=== PATIENT | male | born 1935 | race Caucasian/White ===

== ENCOUNTER 2019-04-22 10:25 | Observation (INO) | payer MEDICARE, BC ==
--- NOTE | 2019-04-22 10:58 | RAD ---
EXAM: Portable chest PROVIDED CLINICAL HISTORY: Chest pain COMPARISON: 12/26/2015 FINDINGS: Cardiac and mediastinal silhouette is unchanged in appearance. Median sternotomy changes are again se en. No focal consolidation, pleural fluid or pneumothorax evident. IMPRESSION: No evidence for an acute cardiopulmonary process.
[2019-04-22 11:04] LABS: #Lymphocytes 1.8 thou/uL (1.20-3.40); #Monocytes 0.7 thou/uL (0.11-0.59); #Neutrophils 5.7 thou/uL (1.40-6.50); %Basophils 0.3 % (0.0-1.0); %Eosinophils 0.2 % (0.0-10.0); %Lymphocytes 22.4 % (21.0-51.0); %Monocytes 8.1 % (0.0-10.0); %Neutrophils 69.1 % (42.0-75.0); Hemoglobin 14.5 g/dL (14.0-18.0); Mean Corpuscular Hemoglobin 33.5 pg (27.0-31.0); Mean Platelet Volume 10.1 fL (7.4-10.4); Platelet Count 162 thou/uL (130-400); RBC Distribution Width 13.2 % (11.5-14.5); Red Blood Cell (RBC) Count 4.31 mill/uL (4.70-6.10); White Blood Cell (WBC) Count 8.2 thou/uL (4.8-10.8)
[2019-04-22 11:14] LABS: ALT (SGPT) 13 U/L (8-55); AST (SGOT) 20 U/L (5-34); Albumin 4.4 g/dL (3.4-4.8); Alkaline Phosphatase 71 U/L (40-110); Anion Gap 11 mmol/L (10-20); BUN (Urea Nitrogen) 17 mg/dL (8.4-25.7); Bilirubin, Total 1.1 mg/dL (0.2-1.2); CK (CPK) 103 U/L (30-200); Calc. Creatinine Clearance 0 mL/min (70-130); Calcium 9.4 mg/dL (7.8-10.44); Carbon Dioxide 30 mmol/L (23-31); Chloride 99 mmol/L (98-107); Estimated GFR-MDRD 70; Globulin 2.8 g/dL (2.4-3.5); Glucose 104 mg/dL (83-110); Potassium 4.7 mmol/L (3.5-5.1); Protein, Total 7.2 g/dL (5.8-8.1); Sodium 135 mmol/L (136-145)
[2019-04-22 11:35] LABS: CKMB 2.9 ng/mL (0-6.6)
[2019-04-22] MEDS ORDERED: Aspirin Chewable 81 MG TAB ONE (12:38)
[2019-04-22] MEDS ORDERED: Acetaminophen 325 MG TAB PO PRN (13:45)
--- NOTE | 2019-04-22 14:18 | HP ---
CHIEF COMPLAINT: Weak. HISTORY OF PRESENT ILLNESS: This is an 83-year-old male with history of coronary artery disease and bypass in 2004, dyslipidemia, and osteoarthritis, who presents to the emergency room today complaining of weakness, lethargy, dizziness, and palpitations. The patient reports that these symptoms have been going on for months, however, were worse today. He describes dizzy as the room spinning, weak as the inability to do anything that he finds meaningful, and palpitations of his both chest pain and tingling that is brief and intermittent, as well as his heart that is beating abnormally. In addition, he complains of productive cough, chest congestion, runny nose that is also chronic, but feels worse today. His took his blood pressure at home, it was 108/62, and she noticed that his heart was skipping beats, which is new. They initially went to Urgent Care, confirmed that there was some abnormal heart beat and sent here. The patient describes his chest is tingling, throughout his chest, that lasts for a few seconds, can also be associated with pain. He denies any radiation of this, denies any shortness of breath, nausea, or vomiting. He does note a similar symptom in the past that led to his bypass, however, states that it was worse at that time. In the emergency room, the patient was evaluated, found to have an indeterminate troponin and hospitalist called for admission. He received 324 mg aspirin. ALLERGIES: CODEINE AND PENICILLIN. MEDICATIONS: Reconciled, but incomplete with the patient and his . 1. Albuterol as needed. 2. A bladder medication, unknown name. 3. Arthritis medication, they think might be Celebrex. 4. Allopurinol 100 mg daily. 5. Simvastatin 10 mg daily. 6. Dramamine 50 mg daily. 7. Zyrtec daily. 8. Astelin daily. 9. An eye drop for his right eye at bedtime. PAST MEDICAL HISTORY: 1. Coronary artery disease and history of bypass. 2. Allergic rhinitis. 3. Osteoarthritis. 4. Gout. 5. Vertigo with hospitalization in 2016. PAST SURGICAL HISTORY: 1. Squamous cell carcinoma removal. 2. Coronary bypass in 2004. 3. Neck surgery. 4. Spinal surgery. 5. Hernia repair. 6. TURP. 7. Detached retinal repair. 8. Sinus surgery. 9. Bilateral shoulders x2. 10. Cataract removal. 11. Corneal transplant. SOCIAL HISTORY: The patient has about 5 alcohol drinks per week, a remote tobacco history, quitting 30 years ago and smoking about 20 years of 1-1/2 packs per day. His is his surrogate decision maker and he is a full code. Of note, though he would not want any prolonged time on life support and states his is aware of this and will make that decision. FAMILY HISTORY: Significant for coronary artery disease. REVIEW OF SYSTEMS: Positive for weight loss, however, it has been a slow process over the past 10 years. Negative for lightheadedness, falls, shortness of breath, nausea, vomiting, fevers, or chills. All remaining review of systems are reviewed and negative. PHYSICAL EXAMINATION: VITAL SIGNS: Blood pressure 126/76, pulse 83, respirations 18, temperature 98, and saturation is 97% on room air. GENERAL: Awake, alert, responsive, in no apparent distress. Able to speak in full sentences. HEENT: His pupils are equal and round. Oral mucosa is pink and moist. NECK: Supple and nontender. LYMPHATICS: No palpable anterior cervical lymphadenopathy. LUNGS: Clear to auscultation bilateral. No audible wheezing, rhonchi, or rales. HEART: Normal S1 and S2. No significant murmur. ABDOMEN: Soft. Present bowel sounds. Nontender and nondistended. No palpable abnormalities. EXTREMITIES: No pitting edema. SKIN: No visible rashes. NEUROLOGIC: No gross deficits. PSYCHIATRIC: Appears euthymic. VASCULAR: 2+ posterior tibialis pulses bilateral. KUMARI FINDINGS AND TEST RESULTS: EKG, left axis deviation, right bundle-branch block, abnormal R-wave progression, QT corrected of 468, no ST changes. Chest x-ray is personally reviewed and normal, no acute cardiopulmonary process. CBC; 8.2, 14.5, 43.8, and 162. Renal panel; 135, 4.7, 99, 30, 17, 1.02, and 104. LFTs are normal. BNP 203, troponin 0.029, which is indeterminate. TSH 0.97. IMPRESSION: 1. Palpitations and brief chest pain in a patient with known coronary artery disease and history of CABG, and no recent evaluation of his heart. 2. Weakness and lethargy, as well as dizziness. Uncertain if related to above. 3. Dyslipidemia. 4. Osteoarthritis. 5. Chronic allergies and chest congestion. 6. History of corneal transplant. 7. History of gout. PLAN: 1. Observation status in the hospital. 2. Telemetry monitoring for the report of abnormal heart rhythm, as well as echocardiogram to evaluate his current error to an echocardiogram. Holding for now on Cardiology consultation. Awaiting both the telemetry and echocardiogram. If abnormal, consider Cardiology consultation here, or if normal - follow up with Dr. Guevara who is the patient's rolling machine tender. 3. Continuing his statin, we will continue aspirin, as well as his allopurinol. We will request his to bring in a full medication list and his eye drops. 4. Check orthostatic vital signs given the reported dizziness as the patient's reports his normal blood pressure at home is low. 5. Anticipated length of stay is 1 midnight. 6. Trend troponin levels. 7. DVT prophylaxis. He is ambulatory. We will use SCDs. 8. GI prophylaxis, not indicated. 9. Code status is full. Surrogate decision maker is his . 10. Reviewed the plan of care with the patient and his who both stated understanding and agree, no questions or further needs at the end of evaluation. I discussed that we may not have an answer for his symptoms during this hospitalization, but will start with a cardiac work-up. Outpatient follow-up with Sujey Benton and Ismael may be needed to continue the evaluation. The patient is at high risk given age, comorbidities, and current presentation. Job ID: [id number] MTDD
[2019-04-22 14:23] VITALS: BMI 22.6
[2019-04-22 14:56] LABS: Troponin I Less than 0.010 ng/mL (< 0.028)
[2019-04-22 17:05] LABS: Troponin I 0.012 ng/mL (< 0.028)
[2019-04-22] MEDS ORDERED: Artificial Tear Sol 15 ML BOT L EYE PRN (20:51)
[2019-04-22] MEDS: Meclizine HCl 25 MG TAB PO SCH (20:58)
[2019-04-22] MEDS ORDERED: prednisoLONE Acet 0.12% Ophth Soln 5 ml Bottle EA EYE SCH (21:00)
[2019-04-22] MEDS ORDERED: Atorvastatin Calcium 20 MG TAB PO SCH (21:00)
[2019-04-22] MEDS ORDERED: Simvastatin 20 MG TAB PO SCH (21:00)
[2019-04-23 05:27] LABS: Anion Gap 9 mmol/L (10-20); BUN (Urea Nitrogen) 15 mg/dL (8.4-25.7); Calc. Creatinine Clearance 60 mL/min (70-130); Calcium 9.4 mg/dL (7.8-10.44); Carbon Dioxide 30 mmol/L (23-31); Chloride 102 mmol/L (98-107); Estimated GFR-MDRD 77; Glucose 88 mg/dL (83-110); Potassium 4.2 mmol/L (3.5-5.1); Sodium 137 mmol/L (136-145)
[2019-04-23] MEDS: Meclizine HCl 25 MG TAB PO SCH (08:08)
[2019-04-23] MEDS ORDERED: Aspirin 325 mg Enteric Coated Tablet PO SCH (09:00)
[2019-04-23] MEDS ORDERED: Oxybutynin ER 5 MG TAB PO SCH (09:00)
[2019-04-23] MEDS ORDERED: Allopurinol 100 MG TAB PO SCH (09:00)
[2019-04-23] MEDS ORDERED: Allopurinol 300 MG TAB PO SCH (09:00)
[2019-04-23] MEDS ORDERED: Sodium Chloride 0.9% 500 ML IV SCH (12:15)
--- NOTE | 2019-04-23 13:40 | CON ---
DATE OF CONSULTATION: 04/23/2019 REASON FOR CONSULTATION: Nonsustained VT. PRIMARY THREAT ANALYST: Yury Guveara. HISTORY OF PRESENT ILLNESS: Mr. Rey is a pleasant 83-year-old white gentleman, who comes to the hospital for dizziness. He was orthostatic and placed on telemetry. He has been given IV fluids. He feels a little bit better now. He was started on oxybutynin recently. He has been on telemetry and throwing a lot of PVCs. He had a small run of nonsustained ventricular tachycardia, lasted 4 beats. It looked to be with a heart rate about 150 per minute. He was asymptomatic at that time. Cardiology has been consulted for this. He denies any chest pain, tightness, pressure, or shortness of breath. PAST MEDICAL HISTORY: 1. Coronary artery disease, status post CABG in 2004. 2. Hyperlipidemia. 3. Osteoarthritis. 4. Allergic rhinitis. 5. Gout. 6. Vertigo. PAST SURGICAL HISTORY: 1. Squamous cell carcinoma removal. 2. Bypass grafting x3 in 2004. 3. Neck surgery. 4. Spinal surgery. 5. Hernia repair. 6. TURP. 7. Retinal repair from detachment. 8. Sinus surgery. 9. Bilateral shoulders x2. 10. Cataract removal. 11. Corneal transplant. OUTPATIENT MEDICATIONS: 1. Albuterol as needed. 2. Oxybutynin. 3. Celebrex. 4. Allopurinol. 5. Simvastatin 10 mg a day. 6. Dramamine. 7. Zyrtec. 8. Astelin. 9. Eye drops. SOCIAL HISTORY: Drinks about 5 alcoholic drinks a week. Quit smoking 30 years ago. No drug use. FAMILY HISTORY: Early coronary artery disease. REVIEW OF SYSTEMS: A 12-point review of systems was done and was all negative unless stated in the history of present illness. PHYSICAL EXAMINATION: VITAL SIGNS: Temperature 96.6, pulse 76, respiratory rate 20, saturating 98% on room air, blood pressure 132/72. GENERAL: Awake, alert, oriented x3. No distress. HEENT: Normocephalic, atraumatic. NECK: Supple. LUNGS: Clear. CARDIOVASCULAR: S1 and S2. No S3 or S4. No murmurs. ABDOMEN: Soft. Positive bowel sounds. EXTREMITIES: No edema. SKIN: Warm and dry. LABORATORY DATA: Laboratory work was reviewed. White count of 8, hemoglobin 14, hematocrit 43, and platelet count of 162. Chemistry was unremarkable. Troponin was undetectable. BNP was 203. Lipase was 7. Echocardiogram done yesterday showed an EF of 40% to 45%, grade 1 diastolic dysfunction, mild MR and mild TR. Telemetry monitoring was reviewed, frequent PVCs with one 4-beat run of nonsustained ventricular tachycardia, had heart rate about 150 beats per minute. ASSESSMENT: 1. Nonsustained ventricular tachycardia. 2. Ischemic cardiomyopathy, EF at 40% to 45%, slight decrease from the last evaluation in 2016 at 45% to 50%. 3. Frequent PVCs. 4. Dizziness, likely orthostatic hypotension. PLAN: 1. I offered Mr. Rey further risk stratification with either stress testing or heart catheterization. Currently, he wishes to be as conservative as he can be. I will plan on starting low-dose beta carlos. His blood pressure should be able to tolerate this. 2. Continue aspirin which he needs for history of CAD. 3. We will give the lowest dose of beta carlos possible. We will use Toprol-XL 12.5 a day. 4. We will have him follow up with Dr. Guevara in the next 2 to 4 weeks. Thank you for letting us to participate in the care of your patient. We will sign off. Please call with any questions. Job ID: [id number]
[2019-04-23 15:05] VITALS: BP 134/60; TEMP 97.3
--- NOTE | 2019-04-23 23:57 | DIS ---
DATE OF ADMISSION: 04/22/2019 DATE OF DISCHARGE: 04/23/2019 DISCHARGE DIAGNOSES: 1. Generalized weakness. 2. Palpitations. 3. Vertigo. 4. Osteoarthritis. 5. Orthostatic hypotension. HOSPITAL COURSE: The patient is an 83-year-old male with history of CABG in 2004, who presented to the hospital with complaints of generalized weakness and felt some palpitations. He does have chronic vertigo and also has a history of sinus issues, which he has followed up with ENT. The patient also had some tingling sensation around his chest. Troponins were trended. Only the first one was mild in the indeterminate stage of 0.029. The remaining were pretty normal. He was noted to have significant PVCs at this time. He underwent an echocardiogram which indicated an EF of 40% to 45%. The patient at this time was seen by Cardiology and recommended a beta carlos on discharge. The patient's orthostatics were positive. He was given a 500 mL bolus which he tolerated very well. He states that he has been eating and drinking well at home. I recommended him to follow up with his stopper grinder in the next 2 to 4 weeks. The patient's Cardiology had mentioned a possible stress test or cardiac cath. However, he wanted some conservative management as of now and just to see if the low-dose beta carlos will work for him. HOME MEDICATIONS: As of the following: He is going to be on metoprolol to 12.5 daily, eye drops, his prednisolone and triamcinolone, albuterol as needed, allopurinol 300 mg daily, Zyrtec 10 mg q.p.m., meclizine 25 mg b.i.d., oxybutynin 50 mg daily, which he has been on for a year, simvastatin 40 mg at bedtime and carboxymethylcellulose 1 to 2 drops in the eye daily p.r.n. PHYSICAL EXAMINATION: VITAL SIGNS: Temperature of 97.3, pulse 72, respirations 18, 97% on room air, blood pressure 134/60. GENERAL: He is awake, alert, and oriented x3. Does not appear in distress. CARDIOVASCULAR: S1, S2 present. No murmurs, rubs, or gallops. Also his electrolytes were checked. His magnesium was 1.5. His potassium was 4.2. His BNP was mildly elevated at 203. He was currently asymptomatic and felt well to be discharged home. Again, he will be discharged home. Follow up with primary. Job ID: [id number]
--- NOTE | 2019-04-29 12:21 | EKG ---
Test Reason : Blood Pressure : / mmHG Vent. Rate : 076 BPM Atrial Rate : 076 BPM P-R Int : 080 ms QRS Dur : 120 ms QT Int : 416 ms P-R-T Axes : 000 -72 -42 degrees QTc Int : 468 ms Sinus rhythm with short IA with occasional Premature ventricular complexes Left axis deviation Right bundle branch block Inferior infarct , age undetermined Anterior infarct , age undetermined T wave abnormality, consider lateral ischemia Abnormal ECG Confirmed by KITTY MARIA ([id number]), production editor LAMONT PEREZ ([id number]) on 04/29/2019 12:21:27 PM Referred By: Confirmed By:KITTY Palma
== END 2019-04-23 16:12 | disposition home or self-care (01) ==
LOC: ERS 10:25 → 2SW 12:43
PROVIDERS: ADMIT Family Medicine; ATTEND Family Medicine
DX: R53.1 Weakness (principal); R00.2 Palpitations; R42 Dizziness and giddiness; M19.90 Unspecified osteoarthritis, unspecified site; I95.1 Orthostatic hypotension; M10.9 Gout, unspecified; I47.2 Ventricular tachycardia; I25.5 Ischemic cardiomyopathy; I49.3 Ventricular premature depolarization; E78.5 Hyperlipidemia, unspecified; Z95.1 Presence of aortocoronary bypass graft; Z79.899 Other long term (current) drug therapy; Z98.890 Other specified postprocedural states; Z87.891 Personal history of nicotine dependence; Z88.5 Allergy status to narcotic agent; Z88.0 Allergy status to penicillin
CPT/HCPCS: 71045; 80048; 82550; 82553; 83690; 83735; 83880; 84484 ×2; 93005; 93306; 99285; G0378 ×3; 36415; 80053; 84443; 85025; J8597

== ENCOUNTER → 2019-05-22 | Day surgery (SDC) | payer MEDICARE, BC ==
[2019-05-19 15:30] VITALS: BMI 23.6
[~2019-05-22] MED LIST: Fentanyl 100 MCG/2 ML VIAL ONE; Iopamidol 370 76% 100 ML VIAL ONE; Midazolam HCl 2 mg/2 ml Vial ONE
[2019-05-22 06:41] LABS: #Lymphocytes 1.8 thou/uL (1.20-3.40); #Monocytes 0.7 thou/uL (0.11-0.59); #Neutrophils 4.5 thou/uL (1.40-6.50); %Eosinophils 0.2 % (0.0-10.0); %Lymphocytes 25.6 % (21.0-51.0); %Monocytes 9.4 % (0.0-10.0); %Neutrophils 64.7 % (42.0-75.0); Hemoglobin 13.9 g/dL (14.0-18.0); Mean Corpuscular Hemoglobin 34.3 pg (27.0-31.0); Mean Platelet Volume 9.7 fL (7.4-10.4); Platelet Count 170 thou/uL (130-400); RBC Distribution Width 13.1 % (11.5-14.5); Red Blood Cell (RBC) Count 4.06 mill/uL (4.70-6.10); White Blood Cell (WBC) Count 6.9 thou/uL (4.8-10.8)
[2019-05-22 06:48] LABS: INR-International Normal Ratio 1.1; PTT 31.5 SEC (22.9-36.1); Prothrombin Time 13.9 SEC (12.0-14.7)
[2019-05-22 07:04] LABS: Anion Gap 10 mmol/L (10-20); BUN (Urea Nitrogen) 17 mg/dL (8.4-25.7); Calc. Creatinine Clearance 56 mL/min (70-130); Calcium 9.3 mg/dL (7.8-10.44); Carbon Dioxide 28 mmol/L (23-31); Chloride 105 mmol/L (98-107); Estimated GFR-MDRD 68; Glucose 100 mg/dL (83-110); Potassium 4.1 mmol/L (3.5-5.1); Sodium 139 mmol/L (136-145)
== END ==
LOC: CCL 05:39
PROVIDERS: ATTEND Internal Medicine Cardiovascular Disease
PROC: 4A023N7 Measurement of Cardiac Sampling and Pressure, Left Heart, Percutaneous Approach (ICD-10-PCS; principal; 2019-05-22)
PROC: B2111ZZ Fluoroscopy of Multiple Coronary Arteries using Low Osmolar Contrast (ICD-10-PCS; 2019-05-22)
PROC: B2181ZZ Fluoroscopy of Left Internal Mammary Bypass Graft using Low Osmolar Contrast (ICD-10-PCS; 2019-05-22)
PROC: B2131ZZ Fluoroscopy of Multiple Coronary Artery Bypass Grafts using Low Osmolar Contrast (ICD-10-PCS; 2019-05-22)
DX: I25.10 Atherosclerotic heart disease of native coronary artery without angina pectoris (principal); I25.810 Atherosclerosis of coronary artery bypass graft(s) without angina pectoris; I25.82 Chronic total occlusion of coronary artery; I47.2 Ventricular tachycardia; R55 Syncope and collapse; I25.5 Ischemic cardiomyopathy; I50.9 Heart failure, unspecified; M10.9 Gout, unspecified; M19.90 Unspecified osteoarthritis, unspecified site; E78.5 Hyperlipidemia, unspecified; Z79.82 Long term (current) use of aspirin; Z79.899 Other long term (current) drug therapy; Z88.0 Allergy status to penicillin; Z88.5 Allergy status to narcotic agent
CPT/HCPCS: 36415; 76942; 80048; 85025; 85610; 85730; 93455; 93567; C1760; C1769; J1644; J2250; J3010; Q9967

== ENCOUNTER 2020-03-13 03:27 | Inpatient (IN) | payer MEDICARE, BC ==
--- NOTE | 2020-03-13 07:56 | RAD ---
TWO VIEWS OF THE RIGHT HIP: INDICATION: Fall with right hip pain. FINDINGS: There is a comminuted right acetabular fracture with a mildly displaced fracture involving the right anterior column. There is a suspicion for a transverse component extending through the acetabulum an d involving the right posterior wall. The posterior column appears intact. The proximal right femur appears intact. There is moderate degenerative arthrosis of the right hip. There is mild degenerat jai change of the right SI joint. There is surgical instrumentation involving the lower lumbar spine . IMPRESSION: Comminuted right acetabular fracture with a mildly displaced component involving the right anterior c olumn with a transverse oriented component involving the right acetabulum and comminution involving t he right posterior wall of the acetabulum. POS: BH
--- NOTE | 2020-03-13 08:07 | RAD ---
Portable frontal chest radiograph: 03/13/2020 COMPARISON: 04/22/2019 HISTORY: Fall on the right hip FINDINGS: There is a multilead right-sided pacing device. Midline sternotomy wires are noted. There i s increased linear interstitial density bilaterally with no focal consolidation or alveolar edema. Postsurgical anchors overlie bilateral humeral heads. IMPRESSION: No radiographic evidence of acute cardiopulmonary disease.
[2020-03-13 08:11] LABS: #Neutrophils 9.8 thou/uL (1.40-6.50); %Basophils 0.2 % (0.0-1.0); %Eosinophils 0.2 % (0.0-10.0); %Lymphocytes 8.2 % (21.0-51.0); %Monocytes 8.6 % (0.0-10.0); %Neutrophils 82.9 % (42.0-75.0); Hemoglobin 13.5 g/dL (14.0-18.0); Mean Corpuscular HGB CONC 34.8 g/dL (32.0-36.0); Mean Corpuscular Hemoglobin 35.6 pg (27.0-31.0); Mean Platelet Volume 9.2 fL (7.4-10.4); Platelet Count 122 thou/uL (130-400); Red Blood Cell (RBC) Count 3.79 mill/uL (4.70-6.10); White Blood Cell (WBC) Count 11.8 thou/uL (4.8-10.8)
[2020-03-13 08:13] LABS: INR-International Normal Ratio 1.2; PTT 34.6 sec (22.9-36.1); Prothrombin Time 15.1 sec (12.0-14.7)
[2020-03-13 08:25] LABS: Phosphorus 3.5 mg/dL (2.3-4.7)
[2020-03-13 08:29] LABS: ALT (SGPT) 17 U/L (8-55); AST (SGOT) 26 U/L (5-34); Albumin 4.1 g/dL (3.4-4.8); Alkaline Phosphatase 68 U/L (40-110); Anion Gap 17 mmol/L (10-20); BUN (Urea Nitrogen) 24 mg/dL (8.4-25.7); Bilirubin, Total 1.1 mg/dL (0.2-1.2); Calc. Creatinine Clearance 0 mL/min (70-130); Calcium 9.5 mg/dL (7.8-10.44); Carbon Dioxide 27 mmol/L (23-31); Chloride 99 mmol/L (98-107); Globulin 2.7 g/dL (2.4-3.5); Glucose 129 mg/dL (83-110); Magnesium 1.7 mg/dL (1.6-2.6); Potassium 4.7 mmol/L (3.5-5.1); Protein, Total 6.8 g/dL (5.8-8.1); Sodium 138 mmol/L (136-145)
--- NOTE | 2020-03-13 09:17 | CT ---
CT OF THE BRAIN WITHOUT CONTRAST: INDICATION: History of fall with head injury. COMPARISON: Prior exam dated 12/26/2015. FINDINGS: Moderate to severe chronic small-vessel white matter ischemic change is stable. Diffuse atrophy is s imilar appearing. No definite acute infarct, hemorrhage, or hydrocephalus is present. Small air flu id level is seen within the sphenoid sinus. No definite displaced facial fracture is grossly evident . Mastoid air cells clear. IMPRESSION: 1. No acute intracranial abnormality. 2. Small air fluid level in the sphenoid sinus may reflect mild sphenoid sinusitis. POS: BH
--- NOTE | 2020-03-13 09:23 | CT ---
CT OF THE RIGHT HIP WITHOUT IV CONTRAST: INDICATION: History of fall with right hip injury. COMPARISON: Right hip radiograph dated 03/13/2020 at 3:47 a.m. FINDINGS: There is a comminuted right acetabular fracture with fracture components involving the anterior colum n, anterior wall, medial acetabular wall, and the right acetabular roof. There is also a nondisplace d fracture component involving the right posterior wall. This fracture comminution extends into the right iliac wing. There is mild degenerative change of the SI joints. There is a nondisplaced commi nuted right inferior pubic ramus fracture. Left obturator ring appears intact. There are vascular c alcifications. Mild extraperitoneal hematoma is seen within the pelvis in the right lower quadrant a s well as within the lower pelvis itself. No active extravasation is grossly evident. IMPRESSION: 1. Comminuted right acetabular fracture. 2. Comminuted minimally displaced right inferior pubic ramus fracture. 3. Extraperitoneal hematoma within the lower pelvis in the right lower quadrant of the abdomen withi n the retroperitoneum. A small amount of hyperdensity is seen within the abdominal cavity possibly r elated to some peritoneal extension. Largest area of hematoma is seen within the right lower quadran t measuring approximately 1.9 x 1.7 cm. POS: BH
[2020-03-13] MEDS ORDERED: hydrALAZINE 20 MG/ML VIAL SLOW IVP PRN (09:34)
[2020-03-13] MEDS ORDERED: Ondansetron PF 4 MG/2 ML Vial IVP PRN (09:34)
[2020-03-13] MEDS ORDERED: Dextrose 5% in Water 1,000 ML IV PRN (09:34)
[2020-03-13] MEDS ORDERED: Morphine 2 MG/ML VIAL SLOW IVP PRN (09:34)
[2020-03-13] MEDS ORDERED: Dextrose 50% Abboject 50 ML SYRINGE SLOW IVP PRN (09:34)
[2020-03-13] MEDS ORDERED: Magnesium 2 GM/50 ML 2 GM in Premix Bag 1 BAG IVPB SCH (09:45)
[2020-03-13] MEDS: traMADol HCl 50 MG TAB PO PRN ×3 (11:04→18:02)
[2020-03-13] MEDS: Acetaminophen 500 MG TAB PO SCH ×2 (11:45→18:02)
[2020-03-13 13:48] VITALS: BMI 22.3
[2020-03-13] MEDS ORDERED: FLU VACC QS2020-21(65YR UP)/PF 240 MCG/0.7 ML SYRINGE IM ONE (14:00)
--- NOTE | 2020-03-13 14:39 | HP ---
REFERRING PHYSICIAN: Dr. Lema. TRAUMA SURGEON: Dr. King. CONSULTING PHYSICIAN: Dr. Hanna. HISTORY OF PRESENT ILLNESS: The patient is an 84-year-old male, presented to the emergency department after he had a mechanical fall yesterday evening. The patient reports he was trying to sit on a chair and got caught up on something on the floor subsequently falling onto his buttocks. He denies hitting his head or loss of consciousness. He is only on aspirin. He reports today complaining of right-sided hip pain. He denies nausea, vomiting, chest pain, shortness of breath, or cough. The patient reports he can walk about 1000 feet. He regularly goes to the end of the driveway to collect the mail as well as takes trash to the end of the driveway. This has no change. On April of 2019, the patient was admitted for weakness, subsequently thereafter, he was diagnosed with nonsustained ventricular tachycardia. Dr. Guevara is his marine engineering technicians. In May, he received a heart catheterization which demonstrated he had new blockages in one of the vessels of his CABG. No intervention was completed and it was elected for the patient to be treated conservatively with medications. The patient reports his functional capacity is at his baseline. He does not require oxygen at home. He is hemodynamically stable with normal mentation at the time of our evaluation. REVIEW OF SYSTEMS: All additional 10-point review of systems negative except as indicated above. PAST MEDICAL HISTORY: Coronary artery disease, status post CABG, CHF, hyperlipidemia, osteoarthritis, gout, BPH, vertigo, GERD, nonsustained ventricular tachycardia, status post pacemaker/AICD. PAST SURGICAL HISTORY: CABG, cervical fusion, cataract surgery bilaterally; lower back spinal surgery, patient unsure what kind; corneal transplant, hernia repair, right rotator cuff surgery, sinus surgery, TURP. CABG was in 2004. SOCIAL HISTORY: The patient drinks alcohol occasionally. Denies tobacco or drug use. MEDICATIONS: Include Tylenol, allopurinol, aspirin 81 mg daily, vitamin D3, Benadryl, Prozac, meclizine, metoprolol 25 mg daily, Oxybutynin, prednisolone eyedrops, and simvastatin. ALLERGIES: CODEINE AND PENICILLIN. PHYSICAL EXAMINATION: VITAL SIGNS: Temperature 97.7, pulse rate 80, respirations are 16, oxygen saturation 97% on room air, and blood pressure 135/70. PRIMARY SURVEY: Airway intact. Adequate breath sounds bilaterally. 2+ pulses in bilateral radials, femorals, and DPs. GCS 15. Gross motor and sensation intact. No lacerations, bruises, or external bleeding. SECONDARY SURVEY: HEAD: Normocephalic, no signs of gross palpable skull deformities or tenderness. EYES: Pupils 3 to 2, equal and reactive to light bilaterally. ENT: No signs of trauma. C-SPINE: No step-offs or deformities. Nontender. C-collar not in place. CHEST: Nontender. No crepitus. No abrasions or ecchymosis noted. ABDOMEN: Soft, nontender, and nondistended. PELVIS: Stable to palpation. Right-sided hip tenderness and posterior pelvic tenderness. RECTAL: Deferred. GENITOURINARY: Deferred. EXTREMITIES: No gross deformities. No abrasions or ecchymosis noted. 2+ pulses bilateral radials, femorals, and DPs. BACK/SPINE: No step-offs or deformities. No tenderness to palpation of thoracic or lumbar spine. No abrasions or ecchymosis noted. NEUROLOGIC: 5/5 strength in bilateral master sonar technician, plantar flexion, dorsiflexion. Gross normal sensation x4 extremities. LABORATORY FINDINGS: White count 11.8, hemoglobin 13.5, hematocrit 38.7, platelets are 122. INR 1.2, PTT 34.6. Sodium 138, potassium 4.7, chloride 99, bicarb 27, BUN 24, creatinine 0.90, glucose 129, phosphorus 3.5, magnesium 1.7, total bilirubin 1.1, AST 26, and ALT 17. DIAGNOSTIC FINDINGS: X-ray of the right hip demonstrates comminuted right acetabular fracture with a mildly displaced component involving the right anterior column with transverse oriented component involving the right acetabulum and comminution involving the right posterior wall of the acetabulum. CT scan of the brain demonstrates no acute intracranial abnormalities. Small air-fluid level in the sphenoid sinus may reflect mild sphenoid sinusitis. No acute intracranial abnormality. CT scan of the right lower extremity demonstrates comminuted right acetabular fracture. Comminuted mildly displaced right inferior pubic rami fracture. Extraperitoneal hematoma within the lower pelvis in the right lower quadrant of the abdomen within the retroperitoneum. Small amount of hypodensity is seen within the abdominal cavity, possibly related to some peritoneal extension. Largest area of hematoma is seen within the right lower quadrant measuring approximately 1.9 x 1.7 cm. Chest x-ray demonstrates no radiographic evidence of acute cardiopulmonary disease. ASSESSMENT: 1. Status post mechanical fall from standing last night. 2. Right acetabular fracture. 3. Right inferior pubic rami fracture. 4. Right retroperitoneal hematoma. 5. History of coronary artery disease, coronary artery bypass graft in 2015, hyperlipidemia, congestive heart failure, status post pacemaker and automatic Implantable Cardioverter Defibrillator placement, BPH, gastroesophageal reflux disease. PLAN: The patient was admitted to the Trauma Service. He will go to regular surgical nursing floor. Orthopedic Surgery has been consulted, and they are evaluating the patient. They are going to attempt conservative management, but are planning further evaluation and will determine whether or not the patient needs surgery in the next 24 hours. In the meantime, we will provide the patient pain control. He will have a heart healthy diet. We will restart him on his home medications as clinically indicated. He will likely need placement at acute rehab facility. However, we will follow up. Final recommendations from Orthopedic Surgery before ordering physical therapy or determining placement needs. There appears to be no change in the patient's cardiopulmonary function from baseline. If there is a concern about decline, we will consult Dr. Guevara for his input as he is the patient's marine engineering technicians. This patient was seen and evaluated by Dr. King and myself this morning in the emergency department. Job ID: [id number]
[2020-03-13] MEDS: Cyclobenzaprine 10 MG TAB PO PRN ×2 (15:27→20:30)
--- NOTE | 2020-03-13 18:16 | CON ---
DATE OF CONSULTATION: 03/13/2020 REQUESTING PHYSICIAN: Dr. King. BRIEF HISTORY OF PRESENT ILLNESS: Mr. Rey is an 84-year-old gentleman, who last night, stumbled and fell while trying to sit in a chair at home, landing on his buttocks. He reports immediate pain in the right hip. The pain persisted this morning and as such, he presented to the emergency room, where x-rays followed by CT were obtained and demonstrated a right acetabular fracture. The patient now admitted to the Trauma Service. Of note, the patient does use both a cane and a walker at home. He reports that his ambulation is primarily around his home, although he does get outside for short walks. He does have a past history of coronary artery bypass surgery. PAST MEDICAL HISTORY: Remarkable for coronary artery disease, congestive heart failure, gout, benign prostatic hypertrophy, gastroesophageal reflux, history of ventricular tachycardia. PAST SURGICAL HISTORY: Includes coronary artery bypass graft, pacemaker placement, multiple spine fusions including cervical and lower spine fusion and decompression, history of hernia repair, rotator cuff repair, transurethral resection of prostate as well as corneal transplant. MEDICATIONS: Include: 1. Allopurinol. 2. Tylenol. 3. Aspirin. 4. Prozac. 5. Metoprolol. 6. Oxybutynin. 7. Prednisolone eye drops. 8. Simvastatin. ALLERGIES: TO CODEINE AND PENICILLIN. FAMILY HISTORY: Noncontributory. SOCIAL HISTORY: Drinks alcohol socially. Denies cigarettes or drugs. REVIEW OF SYSTEMS: No recent fevers, chills, or sweats. Denies chest pain, cough, or shortness of breath. Denies numbness or tingling in his lower legs, although has had some weakness in what he describes as legs just do not respond like he would like them to and he feels this was one of the contributing events that led to his fall and fracture. PHYSICAL EXAMINATION: VITAL SIGNS: Temperature 97.7, heart rate of 80, respiratory rate of 16, and blood pressure 135/70. HEENT: Atraumatic and normocephalic. HEART: Shows a regular rate and rhythm without murmur. LUNGS: Clear bilaterally with good breath sounds. Chest wall is nontender. PELVIS: Stable to compression, but he does have a right groin and hip pain with manipulation of his pelvis. EXTREMITIES: Bilateral upper extremities are atraumatic. Lower extremities remarkable for symmetric leg lengths. He does have right-sided groin pain with logrolling of the right thigh. The knee, ankle, and foot on the right side are atraumatic. LABORATORY DATA: He was found to have a white count of 11.8, a hematocrit of 38.7 and 122,000 platelets. His INR is 1.2. DIAGNOSTIC STUDIES: AP pelvis demonstrated a right acetabular fracture with very minimal displacement. A followup CT scan of the pelvis shows an anterior column fracture with extension into the medial aspect of the acetabulum and fracture heading up the ilium as well. He has a mildly displaced right inferior pubic rami fracture. There is just a slight degree of medial displacement of the femoral head within the pelvis, although not significant protrusio. ASSESSMENT: An 84-year-old gentleman, status post ground level fall sustaining right acetabular fracture. PLAN: Today, I reviewed the x-ray and CT findings with the patient and his . 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 The displacement is not significant and if it can heal in its current position, he will either do well or he would be a good candidate for hip arthroplasty if he were to develop groin pain. We have also discussed the potential risks and benefits of open reduction and internal fixation of the acetabulum given the arthritic change present. At this time, the patient is comfortable proceeding with nonsurgical management and close followup x-rays to ensure that we do not have any more protrusio. The patient will be admitted to the Trauma Service at this time. We will follow the patient closely while he is in-house as well as on an outpatient basis once discharged. Job ID: [id number]
[2020-03-13] MEDS: Famotidine/PF 20 mg/2ml Vial SLOW IVP SCH (20:30)
[2020-03-13] MEDS: Atorvastatin Calcium 20 MG TAB PO SCH (20:30)
--- NOTE | 2020-03-13 22:34 | PDOC.BPN ---
- Brief Progress Note Encounter Date: 03/13/20 Encounter Time: 21:20 Patient was seen during evening rounds on the surgical floor resting comfortably in no distress. No issues reported by the patients nurse. Vital signs are stable and patient is afebrile. Ortho plans non operative management of his fractures.
[2020-03-13 23:32] LABS: SARS-CoV-2 PCR by NAA Not Detected (NotDetected)
[2020-03-14] MEDS: Acetaminophen 500 MG TAB PO SCH ×4 (00:19→17:16)
[2020-03-14 05:59] LABS: #Lymphocytes 0.8 thou/uL (1.20-3.40); #Monocytes 1.3 thou/uL (0.11-0.59); #Neutrophils 13.2 thou/uL (1.40-6.50); %Basophils 0.1 % (0.0-1.0); %Eosinophils 0.1 % (0.0-10.0); %Lymphocytes 5.2 % (21.0-51.0); %Monocytes 8.6 % (0.0-10.0); Hemoglobin 11.7 g/dL (14.0-18.0); Mean Corpuscular HGB CONC 32.9 g/dL (32.0-36.0); Mean Corpuscular Hemoglobin 33.2 pg (27.0-31.0); Mean Platelet Volume 9.8 fL (7.4-10.4); Platelet Count 116 thou/uL (130-400); RBC Distribution Width 13.1 % (11.5-14.5); Red Blood Cell (RBC) Count 3.52 mill/uL (4.70-6.10); White Blood Cell (WBC) Count 15.3 thou/uL (4.8-10.8)
[2020-03-14 06:22] LABS: Anion Gap 13 mmol/L (10-20); BUN (Urea Nitrogen) 24 mg/dL (8.4-25.7); Calc. Creatinine Clearance 49 mL/min (70-130); Carbon Dioxide 26 mmol/L (23-31); Chloride 98 mmol/L (98-107); Glucose 163 mg/dL (83-110); Magnesium 1.9 mg/dL (1.6-2.6); Phosphorus 2.7 mg/dL (2.3-4.7); Potassium 4.5 mmol/L (3.5-5.1); Sodium 132 mmol/L (136-145)
[2020-03-14] MEDS ORDERED: Magnesium 2 GM/50 ML 2 GM in Premix Bag 1 BAG IVPB SCH (07:30)
[2020-03-14] MEDS ORDERED: prednisoLONE Acet 0.12% Ophth Soln 5 ml Bottle R EYE SCH (09:00)
[2020-03-14] MEDS: Oxybutynin ER 5 MG TAB PO SCH (09:20)
[2020-03-14] MEDS: Famotidine/PF 20 mg/2ml Vial SLOW IVP SCH ×2 (09:20→20:22)
[2020-03-14] MEDS: FLUoxetine HCl 10 MG CAP PO SCH (09:21)
[2020-03-14] MEDS: Cyclobenzaprine 10 MG TAB PO PRN ×2 (09:21→20:22)
[2020-03-14] MEDS: Meclizine HCl 25 MG TAB PO SCH (09:21)
[2020-03-14] MEDS: Allopurinol 300 MG TAB PO SCH (09:21)
[2020-03-14] MEDS ORDERED: PRED MILD R EYE SCH (10:30)
[2020-03-14] MEDS ORDERED: Polyethylene Glycol 3350 17 GM Packet PO SCH (10:45)
--- NOTE | 2020-03-14 16:03 | PRG ---
DATE OF SERVICE: 03/14/2020 SUBJECTIVE: The patient was seen this morning during rounds. He was lying in bed, working with Speech Language Pathology. He reported his pain was well controlled. He has not worked with Physical Therapy yet. Orthopedic Surgery has determined they are going to try nonoperative management. He is tolerating his diet. OBJECTIVE: VITAL SIGNS: Temperature 97.6, pulse 77, respirations 16, oxygen saturation 94% on room air, and blood pressure 130/75. GENERAL: A well-appearing elderly male, lying in bed, with no signs of acute distress. PULMONARY: Equal chest rise and fall. Clear breath sounds bilaterally. No signs of acute respiratory distress. CARDIAC: Regular rate and rhythm. GI: Abdomen is soft, nontender, and nondistended. EXTREMITIES: 2+ pulses in all extremities. Gross motor and sensation intact. No significant swelling noted. NEUROLOGIC: GCS is 14-15. The patient is occasionally confused. LABORATORY FINDINGS: White count 15.3, hemoglobin 11.7, hematocrit 35.5, and platelets 116. Sodium 132, potassium 4.5, chloride 98, bicarb 26, BUN 24, creatinine 1.12, and glucose 62. Phosphorus 2.7. Magnesium 1.9. DIAGNOSTIC FINDINGS: There are no new diagnostic findings to report. ASSESSMENT: 1. Status post mechanical fall from standing. 2. Right acetabular fracture. 3. Right inferior pubic rami fracture. 4. Right retroperitoneal hematoma. 5. History of coronary artery disease. 6. Coronary artery bypass graft. 7. Congestive heart failure. 8. Pacemaker/automatic implantable cardioverter-defibrillator secondary to nonsustained ventricular tachycardia. 9. Vertigo. 10. Gout. 11. Benign prostatic hypertrophy. 12. Gastroesophageal reflux disease. PLAN: Continue current diet and pain regimen. Continue physical and occupational therapy. Restart home medications as clinically indicated. Orthopedic Surgery will continue to follow as the patient mobilizes more. They will likely complete additional x-ray imaging to determine whether or not the patient will need operative intervention or can be discharged to acute rehab facility. In the meantime, we will ask Case Management and Physical Therapy to evaluate him for discharge to rehab facility as he will not be able to go home. This patient was discussed with Dr. King for this dictation. Job ID: [id number]
[2020-03-14] MEDS: Senokot S 8.6-50 MG TAB PO SCH (20:22)
[2020-03-14] MEDS: Atorvastatin Calcium 20 MG TAB PO SCH (20:22)
--- NOTE | 2020-03-14 23:50 | PDOC.BPN ---
- Brief Progress Note Encounter Date: 03/14/20 Encounter Time: 22:30 Patient was seen during evening rounds on the surgical floor resting comfortably in no distress. He was DTV early in the shift and his bladder scan showed > 900. Vital signs are stable and patient is afebrile. Plan of care is unchanged. I and O cath X1 and rescan in 6 hours.
[2020-03-15] MEDS: Acetaminophen 500 MG TAB PO SCH ×2 (00:50→06:07)
[2020-03-15 06:26] LABS: Anion Gap 12 mmol/L (10-20); BUN (Urea Nitrogen) 37 mg/dL (8.4-25.7); Calc. Creatinine Clearance 41 mL/min (70-130); Calcium 8.5 mg/dL (7.8-10.44); Carbon Dioxide 29 mmol/L (23-31); Chloride 98 mmol/L (98-107); Glucose 124 mg/dL (83-110); Magnesium 2.3 mg/dL (1.6-2.6); Phosphorus 3.3 mg/dL (2.3-4.7); Sodium 135 mmol/L (136-145)
[2020-03-15 06:32] LABS: #Lymphocytes 0.9 thou/uL (1.20-3.40); #Monocytes 0.8 thou/uL (0.11-0.59); #Neutrophils 8.8 thou/uL (1.40-6.50); %Basophils 0.1 % (0.0-1.0); %Eosinophils 0.1 % (0.0-10.0); %Lymphocytes 8.2 % (21.0-51.0); %Monocytes 7.6 % (0.0-10.0); Hemoglobin 10.5 g/dL (14.0-18.0); Mean Corpuscular Hemoglobin 34.2 pg (27.0-31.0); Mean Platelet Volume 10.3 fL (7.4-10.4); Platelet Count 84 thou/uL (130-400); Platelet Morphology Comment Appears Decreased; RBC Distribution Width 13.1 % (11.5-14.5); Red Blood Cell (RBC) Count 3.08 mill/uL (4.70-6.10); White Blood Cell (WBC) Count 10.4 thou/uL (4.8-10.8)
[2020-03-15] MEDS ORDERED: Sodium Chloride 0.9% 500 ML IV SCH (07:45)
[2020-03-15] MEDS: PRED MILD R EYE SCH (08:54)
[2020-03-15] MEDS: Allopurinol 300 MG TAB PO SCH (08:58)
[2020-03-15] MEDS: Meclizine HCl 25 MG TAB PO SCH (08:58)
[2020-03-15] MEDS: Famotidine/PF 20 mg/2ml Vial SLOW IVP SCH ×2 (08:58→19:28)
[2020-03-15] MEDS: Polyethylene Glycol 3350 17 GM Packet PO SCH (08:58)
[2020-03-15] MEDS: Tamsulosin HCl 0.4 MG CAP PO SCH (08:58)
[2020-03-15] MEDS: Senokot S 8.6-50 MG TAB PO SCH ×2 (08:58→19:28)
[2020-03-15] MEDS: Oxybutynin ER 5 MG TAB PO SCH (08:58)
[2020-03-15] MEDS: FLUoxetine HCl 10 MG CAP PO SCH (09:08)
[2020-03-15 11:34] LABS: Bilirubin Negative (Negative); Blood, Urine 2+ (Negative); Clarity Turbid (Clear); Glucose, Urine (Dipstick) Normal (Negative); Ketone, Urine Negative (Negative); Leukocyte 250 Leu/uL (Negative); Nitrite Negative (Negative); Protein, Urine (Dipstick) 20 mg/dL (Neg-Trace); RBC/HPF Greater than 50 HPF (0-3); Specific Gravity, Urine 1.029 (1.002-1.036); Squamous Epithelial None Seen HPF (0-3); Urobilinogen Normal mg/dL (Less than 2); WBC/HPF 21-50 HPF (0-3); pH, Urine 5.5 (5.0-9.0)
[2020-03-15 11:58] LABS: Bacteria/HPF 2+ HPF (None Seen)
[2020-03-15 11:59] LABS: Urine Culture Reflex Yes Yes
[2020-03-15] MEDS ORDERED: Bisacodyl 10 MG SUPP PR SCH (12:00)
[2020-03-15] MEDS: Acetaminophen 325 MG TAB PO SCH ×2 (12:20→19:27)
[2020-03-15] MEDS ORDERED: Ciprofloxacin 500 MG TAB PO SCH (13:45)
[2020-03-15] MEDS: Cyclobenzaprine 10 MG TAB PO PRN (14:12)
--- NOTE | 2020-03-15 14:22 | PDOC.GSPN ---
Surgery Progress Note: Subj - Subjective Patient reports: no bowel movement Narrative: 84 yo male with R acetablular fx s/p fall evening of 12 Mar 2020. Hospital day 2. Plan from ortho is for non-operative mgmt. Hgb last 3 days: 13.5, then 11.7 yesterday, now 10.5 this am. Labs from this am also show bump in BUN & creatinine (37 & 1.35, respectively). Staff and family reports he has been some what agitated through the night. Required in-and-out cath overnight & this am nurse reports bladder scan showing 999 mL. No BM since hospital admission. Surgery Progress Note: Obj - Vital signs Vital signs: Vital Signs - Most Recent Temp Pulse Resp BP Pulse Ox 98.4 F 74 16 94/54 L 95 03/15/20 11:21 03/15/20 11:21 03/15/20 11:21 03/15/20 11:21 03/15/20 11:21 - Physical Exam General: other (Elderly male. Appears uncomfortable & somewhat anxious at initial encounter in am. Resting comfortably when evaluated at 1500.) ENT: normal nares, normal pinna Neck: trachea midline Cardiovascular: regular rate and rhythm, other (Pulses palpable & symmetric all 4 extremities.) Respiratory: clear to auscultation, normal expansion, normal respiratory effort Abdomen: soft, non tender, nondistended, positive bowel sounds Genitourinary (Male): other (Webb catheter present with reddish urine noted in bag.) Musculoskeletal: other (Moves all 4 extremities.) Psychiatric: oriented to person, oriented to place (GCS = 14 (M6; V4; E4).), other Surgery Progress Note: Results - Labs Result Diagrams: 03/17/20 06:09 03/18/20 06:09 Lab results: Laboratory Results - last 12 hr 03/15/20 03/15/20 03/15/20 05:18 05:18 11:10 WBC 10.4 RBC 3.08 L Hgb 10.5 L Hct 30.9 L MCV 101.0 H MCH 34.2 H MCHC 34.0 RDW 13.1 Plt Count 84 L MPV 10.3 Neutrophils % 84.0 H Lymphocytes % 8.2 L Monocytes % 7.6 Eosinophils % 0.1 Basophils % 0.1 Neutrophils # 8.8 H Lymphocytes # 0.9 L Monocytes # 0.8 H Eosinophils # 0.0 Basophils # 0.0 Plt Morphology Comment Appears Decreased L Sodium 135 L Potassium 4.0 Chloride 98 Carbon Dioxide 29 Anion Gap 12 BUN 37 H Creatinine 1.35 H Estimated GFR (MDRD) 50 Glucose 124 H Calcium 8.5 Phosphorus 3.3 Magnesium 2.3 Cortisol Urine Color Yellow Urine Clarity Turbid A Urine pH 5.5 Ur Specific [place] 1.029 Urine Protein 20 Urine Glucose (UA) Normal Urine Ketones Negative Urine Blood 2+ A Urine Nitrite Negative Urine Bilirubin Negative Urine Urobilinogen Normal Ur Leukocyte Esterase 250 A Urine RBC Greater than 50 A Urine WBC 21-50 A Ur Squamous Epith Cells None Seen Urine Bacteria 2+ A Hyaline Casts 0-3 Urine Culture Reflexed Yes A 03/15/20 12:24 WBC RBC Hgb Hct MCV MCH MCHC RDW Plt Count MPV Neutrophils % Lymphocytes % Monocytes % Eosinophils % Basophils % Neutrophils # Lymphocytes # Monocytes # Eosinophils # Basophils # Plt Morphology Comment Sodium Potassium Chloride Carbon Dioxide Anion Gap BUN Creatinine Estimated GFR (MDRD) Glucose Calcium Phosphorus Magnesium Cortisol 21.10 Urine Color Urine Clarity Urine pH Ur Specific [place] Urine Protein Urine Glucose (UA) Urine Ketones Urine Blood Urine Nitrite Urine Bilirubin Urine Urobilinogen Ur Leukocyte Esterase Urine RBC Urine WBC Ur Squamous Epith Cells Urine Bacteria Hyaline Casts Urine Culture Reflexed Surgery Progress Note: A/P - Problem (1) Right acetabular fracture Current Visit: Yes Code(s): S32.401A - UNSP FRACTURE OF RIGHT ACETABULUM, INIT FOR CLOS FX Status: Acute (2) Fracture of right inferior pubic ramus Current Visit: Yes Code(s): S32.591A - OTH FRACTURE OF RIGHT PUBIS, INIT ENCNTR FOR CLOSED FRACTURE Status: Acute (3) Retroperitoneal hematoma Current Visit: Yes Code(s): K66.1 - HEMOPERITONEUM Status: Acute (4) Urinary tract infection Current Visit: Yes Status: Acute (5) Acute kidney injury Current Visit: Yes Code(s): N17.9 - ACUTE KIDNEY FAILURE, UNSPECIFIED Status: Acute (6) Urinary retention Current Visit: Yes Code(s): R33.9 - RETENTION OF URINE, UNSPECIFIED Status: Acute (7) History of recent fall Current Visit: Yes Code(s): Z91.81 - HISTORY OF FALLING Status: Acute (8) BPH (benign prostatic hyperplasia) Current Visit: Yes Code(s): N40.0 - BENIGN PROSTATIC HYPERPLASIA WITHOUT LOWER URINRY TRACT SYMP Status: Chronic (9) CAD (coronary artery disease) Current Visit: Yes Code(s): I25.10 - ATHSCL HEART DISEASE OF [place] CORONARY ARTERY W/O ANG PCTRS Status: Chronic (10) Hx of cardiac pacemaker Current Visit: Yes Code(s): Z95.0 - PRESENCE OF CARDIAC PACEMAKER Status: Chronic (11) History of cardiac defibrillator placement Current Visit: Yes Code(s): Z95.810 - PRESENCE OF AUTOMATIC (IMPLANTABLE) CARDIAC DEFIBRILLATOR Status: Chronic (12) History of ventricular tachycardia Current Visit: Yes Code(s): Z86.79 - PERSONAL HISTORY OF OTHER DISEASES OF THE CIRCULATORY SYSTEM Status: Acute - Plan Plan: Urinary retention persists. Will place webb catheter today for bladder decompression & anticipate likely removal in next few days after tamsulosin effect realized. Unable to UA shows turbid urine with + bacteria & + leukocyte esterase; cx pending. Will start empiric tx with ciprofloxacin. Will add dulcolax suppository as no BM yet. With downtrending hct, unable to initiate VTE prophylaxis at this time. 500 mL NS bolus given IV to address KB noted today. Addendum - Attending - Attending Attestation Date/Time: 03/18/20 [id number] I personally evaluated the patient and discussed the management with . [] I agree with the History, Examination, Assessment and Plan documented above with any addition or exceptions noted below.
[2020-03-15] MEDS ORDERED: Sodium Chloride 0.9% 1,000 ML IV SCH (16:30)
[2020-03-15] MEDS: Ciprofloxacin 500 MG TAB PO SCH (19:27)
[2020-03-15] MEDS: Melatonin 3 MG TAB PO SCH (19:28)
[2020-03-15] MEDS: Atorvastatin Calcium 20 MG TAB PO SCH (19:28)
--- NOTE | 2020-03-16 00:34 | PDOC.BPN ---
- Brief Progress Note Encounter Date: 03/15/20 Encounter Time: 23:10 Patient was seen during evening rounds on the surgical floor resting comfortably in no distress. No issues reported by the patients nurse. Vital signs are stable and patient is afebrile. Plan of care is unchanged.
[2020-03-16] MEDS: Cyclobenzaprine 10 MG TAB PO PRN (02:11)
[2020-03-16] MEDS: Acetaminophen 325 MG TAB PO SCH ×4 (02:16→18:00)
[2020-03-16] MEDS: Ciprofloxacin 500 MG TAB PO SCH ×2 (05:07→20:35)
[2020-03-16 05:39] LABS: #Lymphocytes 0.6 thou/uL (1.20-3.40); #Monocytes 0.8 thou/uL (0.11-0.59); #Neutrophils 9.6 thou/uL (1.40-6.50); %Basophils 0.1 % (0.0-1.0); %Eosinophils 0.1 % (0.0-10.0); %Monocytes 7.3 % (0.0-10.0); %Neutrophils 87.6 % (42.0-75.0); Hemoglobin 9.9 g/dL (14.0-18.0); Mean Corpuscular HGB CONC 34.2 g/dL (32.0-36.0); Mean Corpuscular Hemoglobin 34.8 pg (27.0-31.0); Mean Platelet Volume 10.2 fL (7.4-10.4); Platelet Count 95 thou/uL (130-400); RBC Distribution Width 13.1 % (11.5-14.5); Red Blood Cell (RBC) Count 2.86 mill/uL (4.70-6.10)
[2020-03-16 05:41] LABS: Anion Gap 13 mmol/L (10-20); BUN (Urea Nitrogen) 32 mg/dL (8.4-25.7); CK (CPK) 456 U/L (30-200); Calc. Creatinine Clearance 73 mL/min (70-130); Calcium 8.4 mg/dL (7.8-10.44); Carbon Dioxide 24 mmol/L (23-31); Chloride 102 mmol/L (98-107); Glucose 113 mg/dL (83-110); Magnesium 1.8 mg/dL (1.6-2.6); Phosphorus 2.7 mg/dL (2.3-4.7); Potassium 4.2 mmol/L (3.5-5.1); Sodium 135 mmol/L (136-145)
[2020-03-16] MEDS ORDERED: Sodium Phosphate 15 MMOL in Sodium Chloride 0.9% 250 ML 250 ML IVPB SCH (08:00)
[2020-03-16] MEDS ORDERED: Magnesium 2 GM/50 ML 2 GM in Premix Bag 1 BAG IVPB SCH (08:00)
[2020-03-16] MEDS: Oxybutynin ER 5 MG TAB PO SCH (08:58)
[2020-03-16] MEDS: Polyethylene Glycol 3350 17 GM Packet PO SCH (08:58)
[2020-03-16] MEDS: Allopurinol 300 MG TAB PO SCH (08:59)
[2020-03-16] MEDS: Tamsulosin HCl 0.4 MG CAP PO SCH (08:59)
[2020-03-16] MEDS: Meclizine HCl 25 MG TAB PO SCH (08:59)
[2020-03-16] MEDS: FLUoxetine HCl 10 MG CAP PO SCH (08:59)
[2020-03-16] MEDS: Senokot S 8.6-50 MG TAB PO SCH ×2 (08:59→20:37)
[2020-03-16] MEDS: Bisacodyl 10 MG SUPP PR SCH (08:59)
[2020-03-16] MEDS ORDERED: Bisacodyl 10 MG SUPP PR SCH (09:00)
[2020-03-16] MEDS: PRED MILD R EYE SCH (09:00)
[2020-03-16] MEDS: Famotidine 20 MG TAB PO SCH ×2 (09:03→20:35)
--- NOTE | 2020-03-16 12:24 | RAD ---
Radiograph pelvis one view: 03/16/2020 HISTORY: Follow-up 84-year-old male acute, traumatic right pelvic fractures. COMPARISON: Right hip radiograph of 03/13/2020 FINDINGS: Multiple mildly displaced fractures of right acetabular roof and medial aspect of right acetabulum. Mildly displaced right superior pubic ramus fracture. Mildly displaced right inferior ramus fracture is more evident than previously The medial acetabular fracture is also more evident. No other fracture identified in the rest of the pelvic ring. IMPRESSION: Acute, traumatic, multiple mildly and moderately displaced fractures of right acetabulum, right super ior ramus, and right inferior ramus.
--- NOTE | 2020-03-16 12:25 | RAD ---
Radiograph right hip 2 views: 03/16/2020 HISTORY: Follow-up 84-year-old male acute, traumatic right pelvic fractures. COMPARISON: Right hip radiograph of 03/13/2020 FINDINGS: Multiple mildly displaced fractures of right acetabular roof and medial aspect of right acetabulum. Mildly displaced right superior pubic ramus fracture. Mildly displaced right inferior ramus fracture is more evident than previously The medial acetabular fracture is also more evident. IMPRESSION: Acute, traumatic, multiple mildly and moderately displaced fractures of right acetabulum, right super ior ramus, and right inferior ramus.
--- NOTE | 2020-03-16 13:31 | PRG ---
DATE OF SERVICE: 03/16/2020 SUBJECTIVE: The patient was seen this morning during rounds. He was lying in bed with no signs of acute distress. The patient's is at bedside. The patient is confused and is suffering from delirium. However, he does follow commands and answer questions appropriately. He is apparently having some visual hallucinations intermittently. He is much calmer than yesterday and he did have most of his breakfast and is drinking better now. OBJECTIVE: VITAL SIGNS: Temperature 97.4, pulse 91, respirations 15, oxygen saturation 92% on room air, blood pressure 134/62. GENERAL: Well-appearing elderly male, lying in bed with no signs of acute distress. He is slightly confused. PULMONARY: Equal chest rise and fall. Clear breath sounds bilaterally. No signs of acute respiratory distress. CARDIAC: Regular rate and rhythm. GI: Abdomen is soft, nontender, nondistended. EXTREMITIES: 2+ pulses in all extremities. Gross motor and sensation intact. No significant swelling noted. : Alcantar is in place with yellow urine in bag. NEUROLOGIC: GCS is 14, -1 for confusion. LABORATORY FINDINGS: White count 11.0, hemoglobin 9.9, hematocrit 29.0, platelets 95. Sodium 135, potassium 4.2, chloride 102, bicarb 24, BUN 32, creatinine 0.76, glucose 113, phosphorus 2.7, magnesium 1.8. CK 456. DIAGNOSTIC FINDINGS: There are no new diagnostic findings to report. ASSESSMENT: 1. Status post mechanical fall from standing. 2. Right acetabular fracture. 3. Right inferior pubic rami fracture. 4. Right retroperitoneal hematoma. 5. Urinary retention. 6. Urinary tract infection, uncomplicated. 7. Acute kidney injury, resolved. 8. Hospital delirium, stable. 9. History of coronary artery disease, coronary artery bypass grafting, congestive heart failure, pacemaker and AICD, vertigo, gout, benign prostatic hypertrophy, gastroesophageal reflux disease, and ventricular tachycardia. PLAN: Continue current diet. IV fluids have finished. We will replace phosphorus and magnesium today. Continue antibiotics. Monitor urine cultures. The patient had a BM yesterday. We will hold off on starting the patient on DVT prophylaxis for another day as his hemoglobin is still slowly downtrending. The patient is pending discharge to acute rehab facility. Orthopedic Surgery to re-evaluate injuries and update Trauma if there are any changes in his plan. Job ID: [id number]
--- NOTE | 2020-03-16 16:21 | PRG ---
DATE OF SERVICE: 03/16/2020 SUBJECTIVE: Kishore is an 84-year-old male, who is hospital day 3 for a right minimally displaced acetabular fracture that appears stable. The patient has been on bed rest, but with Physical Therapy consult for [id number] transfers only. He is nonweightbearing. We are attempting to close treat this problem over concerns of the patient's age and frailty as he is a poor candidate for open reduction and internal fixation. OBJECTIVE: He is alert, responsive, appropriate with examiner. He is lying supine and conversive. He seems cogent. Right lower extremity, leg lengths look equal. He is not internally or externally rotated or shortened. IMAGING STUDIES: 2 views right hip and AP pelvis demonstrate a very little interval change from the diagnostic films from three days ago. The lateral view looks especially nice and I can still see his vertical fracture from the ala down into the posterior joint line and medial wall has not migrated. IMPRESSION: Closed right acetabular fracture without protrusio. PLAN: Continue current care. Continue nonweightbearing. The patient may transfer to either skilled or rehabilitation at this time or within next week for continued efforts at ADLs, but strict nonweightbearing for the near future and follow up in clinic in 3 to 4 weeks with imaging studies for comparison. Job ID: [id number]
[2020-03-16] MEDS: Melatonin 3 MG TAB PO SCH (20:35)
[2020-03-16] MEDS: Atorvastatin Calcium 20 MG TAB PO SCH (20:35)
[2020-03-16] MEDS: traMADol HCl 50 MG TAB PO PRN (20:36)
[2020-03-17] MEDS: Acetaminophen 325 MG TAB PO SCH ×5 (00:25→23:48)
[2020-03-17] MEDS: Ciprofloxacin 500 MG TAB PO SCH ×2 (05:27→19:50)
[2020-03-17 06:43] LABS: #Lymphocytes 0.8 thou/uL (1.20-3.40); #Monocytes 0.7 thou/uL (0.11-0.59); #Neutrophils 6.1 thou/uL (1.40-6.50); %Basophils 0.2 % (0.0-1.0); %Eosinophils 0.1 % (0.0-10.0); %Lymphocytes 10.6 % (21.0-51.0); %Monocytes 8.9 % (0.0-10.0); %Neutrophils 80.2 % (42.0-75.0); Hemoglobin 9.2 g/dL (14.0-18.0); Mean Corpuscular HGB CONC 34.7 g/dL (32.0-36.0); Mean Corpuscular Hemoglobin 34.5 pg (27.0-31.0); Mean Corpuscular Volume 99.4 fL (78.0-98.0); Mean Platelet Volume 9.6 fL (7.4-10.4); Platelet Count 114 thou/uL (130-400); RBC Distribution Width 13.1 % (11.5-14.5); Red Blood Cell (RBC) Count 2.66 mill/uL (4.70-6.10); White Blood Cell (WBC) Count 7.6 thou/uL (4.8-10.8)
[2020-03-17 06:58] LABS: Anion Gap 11 mmol/L (10-20); BUN (Urea Nitrogen) 27 mg/dL (8.4-25.7); Calc. Creatinine Clearance 83 mL/min (70-130); Carbon Dioxide 25 mmol/L (23-31); Chloride 101 mmol/L (98-107); Glucose 104 mg/dL (83-110); Magnesium 1.8 mg/dL (1.6-2.6); Phosphorus 3.1 mg/dL (2.3-4.7); Potassium 3.7 mmol/L (3.5-5.1); Sodium 133 mmol/L (136-145)
[2020-03-17] MEDS: Bisacodyl 10 MG SUPP PR SCH (07:12)
[2020-03-17] MEDS: Polyethylene Glycol 3350 17 GM Packet PO SCH (07:13)
[2020-03-17] MEDS ORDERED: Potassium Phosphate 15 MMOL in Sodium Chloride 0.9% 250 ML 250 ML IVPB SCH (09:00)
[2020-03-17] MEDS ORDERED: Magnesium 2 GM/50 ML 2 GM in Premix Bag 1 BAG IVPB SCH (09:00)
--- NOTE | 2020-03-17 10:36 | RAD ---
Radiograph right hip 2 views: 03/17/2020 4:03 AM HISTORY: 84-year-old male with acute, traumatic right pelvic fractures. Follow-up COMPARISON: 03/16/2020 FINDINGS: No interval change IMPRESSION: No interval change in the displaced multiple fractures of right acetabulum, right superior ramus, and right inferior ramus.
--- NOTE | 2020-03-17 11:00 | RAD ---
Radiograph pelvis one view: 03/17/2020 4:02 AM HISTORY: 84-year-old male with acute pelvic fractures. Acute worsening of pain. COMPARISON: 03/16/2020 FINDINGS: No interval change. IMPRESSION: Acute, traumatic, displaced comminuted fractures of right acetabulum, and right superior and inferior rami. No interval change detected.
[2020-03-17] MEDS: PRED MILD R EYE SCH (11:21)
[2020-03-17] MEDS: Senokot S 8.6-50 MG TAB PO SCH ×2 (11:21→19:50)
[2020-03-17] MEDS: FLUoxetine HCl 10 MG CAP PO SCH (13:26)
[2020-03-17] MEDS: Oxybutynin ER 5 MG TAB PO SCH (13:26)
[2020-03-17] MEDS: Tamsulosin HCl 0.4 MG CAP PO SCH (13:27)
[2020-03-17] MEDS: Meclizine HCl 25 MG TAB PO SCH (13:27)
[2020-03-17] MEDS: Allopurinol 300 MG TAB PO SCH (13:27)
[2020-03-17] MEDS: Famotidine 20 MG TAB PO SCH ×2 (13:27→19:50)
[2020-03-17] MEDS: Aspirin 81 mg Enteric Coated Tablet PO SCH ×2 (13:27→19:50)
--- NOTE | 2020-03-17 17:55 | PRG ---
DATE OF SERVICE: 03/17/2020 SUBJECTIVE: Kishore is an 84-year-old male, whom we are treating closed for right acetabular fracture and medial wall injury. He is doing well. He has been sitting up. He has not been standing or walking. He has been [id number] transfer only. OBJECTIVE: GENERAL: The patient is alert and responsive. VITAL SIGNS: Temperature 97.6, pulse 70, respiratory rate 16, and blood pressure 121/69. EXTREMITIES: No leg length discrepancies are noted. No shortening or malrotation. IMPRESSION: An 84-year-old male, hospital day 3 for closed treatment, right hip acetabular fracture and medial wall injury. PLAN: Continue current care. He is stable for transfer to rehabilitation at any time. Job ID: [id number]
--- NOTE | 2020-03-17 18:34 | PRG ---
DATE OF SERVICE: 03/17/2020 SUBJECTIVE: The patient was seen this afternoon during rounds. He had received lower brule overnight and was quite sleepy throughout the day, but he was arousable and communicative whenever I saw him. His was at bedside and she was going to see him lunch. Also, nursing was asked to place the patient in neuro chair. OBJECTIVE: VITAL SIGNS: Temperature 97.4, pulse 85, respirations 14, oxygen saturation 97% on room air, blood pressure 139/77. GENERAL: Well-appearing elderly male, lying in bed with no signs of acute distress. PULMONARY: Equal chest rise and fall. Clear breath sounds bilaterally. No signs of acute respiratory distress. CARDIAC: Regular rate and rhythm. GI: Abdomen is soft, nontender, nondistended. EXTREMITIES: 2+ pulses all extremities. Gross motor and sensation intact. No significant swelling noted. NEUROLOGIC: GCS is 14, -1 for confusion. LABORATORY FINDINGS: White count 7.6, hemoglobin 9.2, hematocrit 26.5, platelets 114. Sodium 133, potassium 3.7, chloride 101, bicarb 25, BUN 27, creatinine 0.67, glucose 104, phosphorus 3.1 magnesium 1.9. DIAGNOSTIC FINDINGS: X-ray of the right hip demonstrates no interval change in the displaced multiple fracture of the right acetabular, right superior ramus and right inferior ramus. X-ray of the pelvis demonstrates acute traumatic nondisplaced comminuted fracture of the right acetabulum and right superior and inferior rami. No interval change detected. ASSESSMENT: 1. Status post mechanical fall from standing. 2. Right acetabular fracture. 3. Right superior and inferior pubic rami fracture. 4. Retroperitoneal hematoma, stable. 5. Urinary retention, resolved. 6. Urinary tract infection, uncomplicated. 7. Acute kidney injury, resolved. 8. History of coronary artery disease, coronary artery bypass graft, congestive heart failure, pacemaker/AICD, vertigo, gout, benign prostate hypertrophy, gastroesophageal reflux disease, and ventricular tachycardia. PLAN: Continue regular diet. Continue Ensure, up in neuro chair. Continue physical and occupational therapy. In general, continue to monitor vital signs. Replace potassium, phosphorus, and magnesium. Acute delirium is resolving. The patient will likely be ready for discharge to acute rehab facility in the morning. Job ID: [id number]
[2020-03-17] MEDS: Melatonin 3 MG TAB PO SCH (19:50)
[2020-03-17] MEDS: Atorvastatin Calcium 20 MG TAB PO SCH (19:50)
[2020-03-18] MEDS: Acetaminophen 325 MG TAB PO SCH ×3 (05:39→18:13)
[2020-03-18 06:58] LABS: Anion Gap 8 mmol/L (10-20); BUN (Urea Nitrogen) 19 mg/dL (8.4-25.7); Calc. Creatinine Clearance 79 mL/min (70-130); Calcium 7.7 mg/dL (7.8-10.44); Carbon Dioxide 27 mmol/L (23-31); Chloride 103 mmol/L (98-107); Glucose 95 mg/dL (83-110); Magnesium 1.9 mg/dL (1.6-2.6); Phosphorus 3.1 mg/dL (2.3-4.7); Potassium 4.1 mmol/L (3.5-5.1); Sodium 134 mmol/L (136-145)
[2020-03-18] MEDS: FLUoxetine HCl 10 MG CAP PO SCH (07:40)
[2020-03-18] MEDS: Senokot S 8.6-50 MG TAB PO SCH ×2 (07:40→19:09)
[2020-03-18] MEDS: Tamsulosin HCl 0.4 MG CAP PO SCH (07:41)
[2020-03-18] MEDS: Famotidine 20 MG TAB PO SCH ×2 (07:41→19:09)
[2020-03-18] MEDS: Allopurinol 300 MG TAB PO SCH (07:41)
[2020-03-18] MEDS: Aspirin 81 mg Enteric Coated Tablet PO SCH ×2 (07:41→19:09)
[2020-03-18] MEDS: Oxybutynin ER 5 MG TAB PO SCH (07:42)
[2020-03-18] MEDS: PRED MILD R EYE SCH (07:42)
[2020-03-18] MEDS: Meclizine HCl 25 MG TAB PO SCH (07:42)
[2020-03-18] MEDS: Polyethylene Glycol 3350 17 GM Packet PO SCH ×2 (07:42→07:46)
[2020-03-18] MEDS: Bisacodyl 10 MG SUPP PR SCH ×2 (07:43→13:39)
[2020-03-18] MEDS: traMADol HCl 50 MG TAB PO PRN (16:19)
--- NOTE | 2020-03-18 16:47 | PDOC.GSPN ---
Surgery Progress Note: Subj - Subjective Patient reports: no new complaints, had a bowel movement, pain well controlled Narrative: 84 yo male with R acetablular fx s/p fall evening of 12 Mar 2020. Hospital day 5. Plan from ortho is for non-operative mgmt. reports he remains somewhat confused. BUN & creatinine improved over the weekend, now at 19 and 0.70, respectively. Urine cx showed no growth. Had BM x4 yesterday. reports he did well up on neuro chair yesterday. Reports intermittent muscle spasms on R. No new concerns from . Surgery Progress Note: Obj - Vital signs Vital signs: Vital Signs - Most Recent Temp Pulse Resp BP Pulse Ox 98.0 F 76 18 143/74 H 97 03/18/20 12:00 03/18/20 12:00 03/18/20 12:00 03/18/20 12:00 03/18/20 12:00 - Physical Exam General: no distress, well developed ENT: normal pinna Neck: no kaye distention, trachea midline Cardiovascular: regular rate and rhythm Respiratory: clear to auscultation, normal expansion, normal respiratory effort Abdomen: soft, non tender, nondistended, positive bowel sounds Genitourinary (Male): other (Alcantar catheter in place draining clear yellow urine.) Integumentary: no rash Musculoskeletal: other (Lying confortably in bed.) Psychiatric: oriented to person, oriented to place, other (GCS = 14 (M6; V4; E4). Remains somewhat confused, talking to his about needing to go house hunting.) Surgery Progress Note: Results - Labs Result Diagrams: 03/17/20 06:09 03/18/20 06:09 Lab results: Laboratory Results - last 12 hr 03/18/20 06:09 Sodium 134 L Potassium 4.1 Chloride 103 Carbon Dioxide 27 Anion Gap 8 L BUN 19 Creatinine 0.70 Estimated GFR (MDRD) Greater than 90 Glucose 95 Calcium 7.7 L Phosphorus 3.1 Magnesium 1.9 Surgery Progress Note: A/P - Problem (1) Right acetabular fracture Code(s): S32.401A - UNSP FRACTURE OF RIGHT ACETABULUM, INIT FOR CLOS FX Status: Acute (2) Fracture of right inferior pubic ramus Code(s): S32.591A - OTH FRACTURE OF RIGHT PUBIS, INIT ENCNTR FOR CLOSED FRACTURE Status: Acute Qualifiers: Encounter type: initial encounter (3) Retroperitoneal hematoma Code(s): K66.1 - HEMOPERITONEUM Status: Acute (4) Urinary tract infection Status: Acute (5) Acute kidney injury Code(s): N17.9 - ACUTE KIDNEY FAILURE, UNSPECIFIED Status: Acute (6) Urinary retention Code(s): R33.9 - RETENTION OF URINE, UNSPECIFIED Status: Chronic (7) History of recent fall Code(s): Z91.81 - HISTORY OF FALLING Status: Acute (8) BPH (benign prostatic hyperplasia) Code(s): N40.0 - BENIGN PROSTATIC HYPERPLASIA WITHOUT LOWER URINRY TRACT SYMP Status: Chronic (9) CAD (coronary artery disease) Code(s): I25.10 - ATHSCL HEART DISEASE OF [place] CORONARY ARTERY W/O ANG PCTRS Status: Chronic (10) Hx of cardiac pacemaker Code(s): Z95.0 - PRESENCE OF CARDIAC PACEMAKER Status: Chronic (11) History of cardiac defibrillator placement Code(s): Z95.810 - PRESENCE OF AUTOMATIC (IMPLANTABLE) CARDIAC DEFIBRILLATOR Status: Chronic (12) History of ventricular tachycardia Code(s): Z86.79 - PERSONAL HISTORY OF OTHER DISEASES OF THE CIRCULATORY SYSTEM Status: Chronic - Plan Plan: Continuing to progress. Seems more alert today vs eval on Feb. Advised that muscle relaxer is available prn if muscle spasms are a concern. Continue current plan of care. Anticipate d/c to SNF/rehab center soon; medically cleared for d/c. Plan for f/u on rounds in am. Pt seen and evaluated with Dr King. Addendum - Attending - Attending Attestation Date/Time: 03/22/20 6915 I personally evaluated the patient and discussed the management with . [] I agree with the History, Examination, Assessment and Plan documented above with any addition or exceptions noted below.
[2020-03-18] MEDS: Atorvastatin Calcium 20 MG TAB PO SCH (19:09)
[2020-03-18] MEDS: Melatonin 3 MG TAB PO SCH (19:09)
[2020-03-19] MEDS: Acetaminophen 325 MG TAB PO SCH ×5 (01:20→23:41)
[2020-03-19] MEDS: Cyclobenzaprine 10 MG TAB PO PRN (07:55)
[2020-03-19] MEDS: Senokot S 8.6-50 MG TAB PO SCH ×2 (07:56→19:43)
[2020-03-19] MEDS: Oxybutynin ER 5 MG TAB PO SCH (07:57)
[2020-03-19] MEDS: Meclizine HCl 25 MG TAB PO SCH (07:58)
[2020-03-19] MEDS: Allopurinol 300 MG TAB PO SCH (07:58)
[2020-03-19] MEDS: Tamsulosin HCl 0.4 MG CAP PO SCH (07:58)
[2020-03-19] MEDS: FLUoxetine HCl 10 MG CAP PO SCH (07:58)
[2020-03-19] MEDS: Aspirin 81 mg Enteric Coated Tablet PO SCH ×2 (07:58→19:42)
[2020-03-19] MEDS: Polyethylene Glycol 3350 17 GM Packet PO SCH (07:58)
[2020-03-19] MEDS: PRED MILD R EYE SCH (08:01)
[2020-03-19] MEDS: Bisacodyl 10 MG SUPP PR SCH (11:03)
[2020-03-19 13:00] LABS: Bilirubin Negative (Negative); Blood, Urine Trace (Negative); Clarity Clear (Clear); Glucose, Urine (Dipstick) Negative (Negative); Ketone, Urine Negative (Negative); Leukocyte Trace (Negative); Nitrite Negative (Negative); Protein, Urine (Dipstick) Negative (Neg-Trace); Specific Gravity, Urine 1.015 (1.005-1.030)
[2020-03-19 13:13] LABS: Bacteria/HPF None Seen HPF (None Seen); RBC/HPF 0-3 HPF (0-3); Squamous Epithelial 0-3 HPF (0-3); WBC/HPF 0-3 HPF (0-3)
[2020-03-19] MEDS: Atorvastatin Calcium 20 MG TAB PO SCH (19:42)
[2020-03-19] MEDS: Melatonin 3 MG TAB PO SCH (19:42)
[2020-03-20] MEDS: Acetaminophen 325 MG TAB PO SCH ×3 (06:00→18:13)
[2020-03-20] MEDS: Oxybutynin ER 5 MG TAB PO SCH (08:45)
[2020-03-20] MEDS: FLUoxetine HCl 10 MG CAP PO SCH (08:46)
[2020-03-20] MEDS: Tamsulosin HCl 0.4 MG CAP PO SCH (08:46)
[2020-03-20] MEDS: Allopurinol 300 MG TAB PO SCH (08:46)
[2020-03-20] MEDS: Meclizine HCl 25 MG TAB PO SCH (08:46)
[2020-03-20] MEDS: Aspirin 81 mg Enteric Coated Tablet PO SCH ×2 (08:46→20:48)
[2020-03-20] MEDS: PRED MILD R EYE SCH (08:47)
[2020-03-20] MEDS: Bisacodyl 10 MG SUPP PR SCH (08:48)
[2020-03-20] MEDS ORDERED: RisperDAL M-TAB 1 MG TAB SL SCH (09:00)
[2020-03-20] MEDS: Senokot S 8.6-50 MG TAB PO SCH ×2 (09:25→20:48)
[2020-03-20] MEDS: Polyethylene Glycol 3350 17 GM Packet PO SCH (09:25)
--- NOTE | 2020-03-20 15:11 | PDOC.DS.DS ---
Provider Date of Admission: 03/13/20 09:34 Date of Discharge: 03/21/20 Admitting Provider: Titus King DO Consultations: Orthopedics (Right hip fracture) Primary Care Physician: Greg Benton MD Course Hospital Course: 84 y/o male brought to the hospital after ground level fall on right side. CT positive for right acetabular fracture,right inferior pubic rami fracture, and right retroperitoneal hematoma. Orthopedics was consulted and plan non-operative management after discussion with . Patient experienced delirium and KB. KB resolved bun/cr 19/.70. Urine cultures negative. Delirium improved over the hospital course. The patient was placed on dvt prophylaxis. SW, PT and OT consu lted. Social work discussed with the discharge to rehab. The patient and agreed to discharge to rehab. At the time of discharge patient was voiding spontaneously , passing bowel and tolerating diet. Follow up with orthopedic. Lab Results: 03/17/20 06:09 03/18/20 06:09 Abnormal Lab Results - Last 48 hrs 03/19/20 12:45: Urine Urobilinogen 4.0 A, Ur Leukocyte Esterase Trace H Microbiology - Entire Visit 03/19/20 12:45 Urine webb catheter Urine Culture - Preliminary NO GROWTH AT 24 HOURS 03/15/20 11:59 Urine clean catch Urine Culture - Final NO GROWTH AT 48 HOURS Vitals: Vital Signs (12 hours) Temp Pulse Resp BP BP Pulse Ox 03/20/20 11:41 98 F 69 18 115/67 95 03/20/20 08:00 95 03/20/20 07:53 98.2 F 83 18 112/64 95 Weight Weight 160 lb Physical Exam: The patient was seen and examined on the day of discharge. Problem Assessment: 84 y/o Right Acetabular fractureFracture inferior pubic ramus, retroperitoneal hematoma Non-weight bearing right lower extremity. (1) Fracture of right inferior pubic ramus Code(s): S32.591A - OT FRACTURE OF RIGHT PUBIS, INIT ENCNTR FOR CLOSED FRACTURE Status: Acute Qualifiers: Encounter type: initial encounter (2) History of recent fall Code(s): Z91.81 - HISTORY OF FALLING Status: Acute (3) History of ventricular tachycardia Code(s): Z86.79 - PERSONAL HISTORY OF OTHER DISEASES OF THE CIRCULATORY SYSTEM Status: Chronic (4) Retroperitoneal hematoma Code(s): K66.1 - HEMOPERITONEUM Status: Acute (5) Right acetabular fracture Code(s): S32.401A - UNSP FRACTURE OF RIGHT ACETABULUM, INIT FOR CLOS FX Status: Acute (6) Syncope Code(s): R55 - SYNCOPE AND COLLAPSE Status: Acute (7) Urinary retention Code(s): R33.9 - RETENTION OF URINE, UNSPECIFIED Status: Chronic (8) Vertigo Code(s): R42 - DIZZINESS AND GIDDINESS Status: Acute (9) BPH (benign prostatic hyperplasia) Code(s): N40.0 - BENIGN PROSTATIC HYPERPLASIA WITHOUT LOWER URINRY TRACT SYMP Status: Chronic (10) CAD (coronary artery disease) Code(s): I25.10 - ATHSCL HEART DISEASE OF [place] CORONARY ARTERY W/O ANG PCTRS Status: Chronic (11) History of cardiac defibrillator placement Code(s): Z95.810 - PRESENCE OF AUTOMATIC (IMPLANTABLE) CARDIAC DEFIBRILLATOR Status: Chronic (12) Hx of cardiac pacemaker Code(s): Z95.0 - PRESENCE OF CARDIAC PACEMAKER Status: Chronic Time Spent in discharge related activities (mins): 35 Plan Home Medications: Medication Instructions Recorded Confirmed Type Allopurinol 300 mg PO DAILY 12/26/15 03/13/20 History Simvastatin 40 mg PO HS 12/26/15 03/13/20 History Aspirin [Aspir-Low] 81 mg PO DAILY 05/19/19 03/13/20 History Acetaminophen [Tylenol Extra 500 mg PO BID 03/13/20 03/13/20 History Strength] Cholecalciferol (Vitamin D3) 2,000 unit PO DAILY 03/13/20 03/13/20 History [Vitamin D3] FLUoxetine HCl [Prozac] 10 mg PO DAILY 03/13/20 03/13/20 History Meclizine HCl [Dramamine Less 25 mg PO DAILY 03/13/20 03/13/20 History Drowsy] Metoprolol Succinate 25 mg PO DAILY 03/13/20 03/13/20 History Oxybutynin Chloride [Oxybutynin 15 mg PO DAILY 03/13/20 03/13/20 History Chloride ER] diphenhydrAMINE [Benadryl] 25 mg PO DAILY 03/13/20 03/13/20 History prednisoLONE Acetate [Pred Mild 1 drop R EYE DAILY 03/13/20 03/13/20 History 0.12% Ophth Suspension] Acetaminophen [Tylenol Regular 325 mg PO Q6HR tab 03/21/20 Rx Strength] QUEtiapine Fumarate [SEROquel] 25 mg PO HS tab 03/21/20 Rx Allergies: codeine Allergy (Verified 05/19/19 15:30) Penicillins Allergy (Verified 05/19/19 15:30) Activity:: Other (RLE non-weightbearing. Weight bearing as tolerated RUE, LUE and LLE) Nourishment:: Heart Healthy Diet (CAD) Referrals: Greg Benton MD [Primary Care Provider] - Howard Ryan MD [Active] - 2-3 Weeks Disposition: [facility]IV[facility] Quality CORE MEASURES:: N/A (n/a) Addendum - Attending - Attending Attestation Date/Time: 03/22/20 [id number] I personally evaluated the patient and discussed the management with Dr. [] I agree with the History, Examination, Assessment and Plan documented above with any addition or exceptions noted below.
[2020-03-20] MEDS: Melatonin 3 MG TAB PO SCH (20:47)
[2020-03-20] MEDS: Cyclobenzaprine 10 MG TAB PO PRN (20:47)
[2020-03-20] MEDS: Atorvastatin Calcium 20 MG TAB PO SCH (20:48)
[2020-03-20] MEDS ORDERED: Mupirocin 2% Ointment 22 GM Tube TOP PRN (21:00)
[2020-03-21] MEDS: Acetaminophen 325 MG TAB PO SCH ×3 (00:06→12:56)
[2020-03-21] MEDS: Cyclobenzaprine 10 MG TAB PO PRN (05:25)
[2020-03-21] MEDS: Aspirin 81 mg Enteric Coated Tablet PO SCH (09:29)
[2020-03-21] MEDS: Senokot S 8.6-50 MG TAB PO SCH (09:29)
[2020-03-21] MEDS: Meclizine HCl 25 MG TAB PO SCH (09:30)
[2020-03-21] MEDS: Oxybutynin ER 5 MG TAB PO SCH (09:30)
[2020-03-21] MEDS: FLUoxetine HCl 10 MG CAP PO SCH (09:30)
[2020-03-21] MEDS: Tamsulosin HCl 0.4 MG CAP PO SCH (09:30)
[2020-03-21] MEDS: Allopurinol 300 MG TAB PO SCH (09:30)
[2020-03-21] MEDS: PRED MILD R EYE SCH (09:31)
[2020-03-21] MEDS: Bisacodyl 10 MG SUPP PR SCH (09:31)
[2020-03-21] MEDS: Polyethylene Glycol 3350 17 GM Packet PO SCH (09:32)
[2020-03-21 11:55] VITALS: TEMP 98.2
[2020-03-21] MEDS ORDERED: Sodium Chloride 0.9% 500 ML IV SCH (13:15)
[2020-03-21 14:17] VITALS: BP 100/50
[2020-03-21] MEDS ORDERED: RisperDAL M-TAB 1 MG TAB SL SCH (21:00)
== END 2020-03-21 14:05 | DRG 964 ==
LOC: ERS 03:27 → SURG A 09:34
PROVIDERS: ADMIT Surgery; ATTEND Surgery
DX: S32.591A Other specified fracture of right pubis, initial encounter for closed fracture (principal); S36.899A Unspecified injury of other intra-abdominal organs, initial encounter; N17.9 Acute kidney failure, unspecified; S32.401A Unspecified fracture of right acetabulum, initial encounter for closed fracture; N39.0 Urinary tract infection, site not specified; F05 Delirium due to known physiological condition; W18.30XA Fall on same level, unspecified, initial encounter; R33.9 Retention of urine, unspecified; N40.0 Benign prostatic hyperplasia without lower urinary tract symptoms; I25.10 Atherosclerotic heart disease of native coronary artery without angina pectoris; I11.0 Hypertensive heart disease with heart failure; I50.9 Heart failure, unspecified; M10.9 Gout, unspecified; K21.9 Gastro-esophageal reflux disease without esophagitis; Z91.81 History of falling; Z86.79 Personal history of other diseases of the circulatory system; Z95.810 Presence of automatic (implantable) cardiac defibrillator; Z79.82 Long term (current) use of aspirin; Z79.899 Other long term (current) drug therapy; Z88.0 Allergy status to penicillin; Z88.5 Allergy status to narcotic agent; Z87.891 Personal history of nicotine dependence; Z95.1 Presence of aortocoronary bypass graft; Z94.7 Corneal transplant status
CPT/HCPCS: 36415; 70450; 71045; 72170; 80048; 80053; 81001; 81003; 81015; 82533; 82550; 83735; 84100; 85025; 85610; 85730; 87086; 87635; 93005; G0390; J3475; J7050; S0028; U0003; U0005

== ENCOUNTER 2020-03-27 14:40 | Inpatient (IN) | payer MEDICARE, BC ==
[2020-03-27 15:19] LABS: Mean Corpuscular HGB CONC 33.7 g/dL (32.0-36.0); Mean Corpuscular Hemoglobin 34.2 pg (27.0-31.0); Mean Platelet Volume 7.6 fL (7.4-10.4); Platelet Count 366 thou/uL (130-400); RBC Distribution Width 13.2 % (11.5-14.5); White Blood Cell (WBC) Count 21.8 thou/uL (4.8-10.8)
[2020-03-27] MEDS ORDERED: Vancomycin 1 GM/200 ML BAG ONE (15:35)
[2020-03-27] MEDS ORDERED: cefTRIAXone\\ROCEPHIN 2 GM VIAL ONE (15:35)
[2020-03-27 15:41] LABS: ALT (SGPT) 35 U/L (8-55); AST (SGOT) 30 U/L (5-34); Albumin 3.3 g/dL (3.4-4.8); Alkaline Phosphatase 182 U/L (40-110); Anion Gap 16 mmol/L (10-20); BUN (Urea Nitrogen) 41 mg/dL (8.4-25.7); Bilirubin, Total 1.4 mg/dL (0.2-1.2); Calc. Creatinine Clearance 0 mL/min (70-130); Calcium 8.2 mg/dL (7.8-10.44); Carbon Dioxide 26 mmol/L (23-31); Chloride 96 mmol/L (98-107); Globulin 2.8 g/dL (2.4-3.5); Glucose 125 mg/dL (83-110); Potassium 4.4 mmol/L (3.5-5.1); Protein, Total 6.1 g/dL (5.8-8.1); Sodium 134 mmol/L (136-145)
[2020-03-27 15:42] LABS: Band 1 % (5-11); Lymphocytes 4 % (21-51); MDiff Complete? YES; Macrocytosis SLIGHT = 6-15 cells (100X) (0-5/hpf); Monocytes 5 % (0-10); Neutrophil 90 % (42-75); Platelet Morphology Comment Appears Adequate; Polychromasia SLIGHT = 2-3 cells (100X) (0-2/hpf)
--- NOTE | 2020-03-27 16:07 | RAD ---
EXAM: Single view of the chest HISTORY: Altered mental status COMPARISON: 03/13/2020 FINDINGS: Single view of the chest shows a normal sized cardiomediastinal silhouette. The patient is status post sternotomy. The pacemaker is unchanged in position. There is no evidence of consolidation, mass, or pleural effusion. Degenerative changes are seen in the spine and shoulders. P ostsurgical changes are seen in both shoulders. IMPRESSION: No evidence of acute cardiopulmonary disease
[2020-03-27] MEDS ORDERED: Aspirin 325 MG TAB ONE (16:14)
[2020-03-27] MEDS ORDERED: Lidocaine Viscous Sol 2% 15 ml UD Cup ONE (17:57)
[2020-03-27 18:48] LABS: Bacteria/HPF None Seen HPF (None Seen); Bilirubin Negative (Negative); Blood, Urine 1+ (Negative); Clarity Clear (Clear); Glucose, Urine (Dipstick) Normal (Negative); Ketone, Urine Negative (Negative); Leukocyte Negative Leu/uL (Negative); Nitrite Negative (Negative); Protein, Urine (Dipstick) 20 mg/dL (Neg-Trace); RBC/HPF 21-50 HPF (0-3); Specific Gravity, Urine 1.022 (1.002-1.036); Squamous Epithelial 0-3 HPF (0-3); pH, Urine 5.5 (5.0-9.0)
[2020-03-27] MEDS ORDERED: Sodium Chloride 0.9% 1,000 ML IV SCH (21:15)
[2020-03-27 21:26] VITALS: BMI 21.5
[2020-03-27 23:05] LABS: Troponin I 0.032 ng/mL (< 0.028)
[2020-03-28] MEDS ORDERED: Ondansetron ODT 4 MG TAB PO PRN (01:26)
--- NOTE | 2020-03-28 01:36 | PDOC.HHP ---
Hospitalist HPI Urinary retention History of Present Illness: PCP: Dr. Benton The patient is an 84-year-old male with a past medical history significant for BPH, OAB, CAD with AICD/PM that presents to the emergency department via EMS for the above complaint. The patient was recently discharged from our hospital on 03/21/2020 after suffering a ground level fall on his right side. CT scan showed acetabular fracture, right inferior pubic rami fracture and right retroperitoneal hematoma. Surgical intervention deferred. Goal was to send the patient to [facility] for rehabilitation and reevaluation in the upcoming weeks. Patient had a Alcantar catheter, which was removed on Wednesday. Since, the patient has had difficulty urinating and has had very little urinary output in the past 48 to 72 hours. Per his spouse, multiple straight caths were attempted at rehab facility, with no urinary output achieved. EMS was called and the patient was taken to the hospital for further evaluation. The patient and his spouse deny any fever or chills. Denies any abdominal pain, nausea, vomiting or changes in bowels. Patient denies constipation. Patient has chronic urinary frequency and urgency secondary to BPH. He is status post TURP. Patient denies any chest pain heart palpitations or lightheadedness. Denies any shortness of breath cough or wheezing. He states that he feels really well and has no complaints at this time. ED Course: The patient presented mildly tachycardic, NL BP, RR, SPO2. Afebrile. EKG V paced., Troponins 0.036, 0.020, 0.032 CXR no acute process. UA 7-10 WBCs, no leukocyte Esterase, or nitrites or bacteria. WBCs 21.8, LA 1.7 Blood/urine cultures pending BUN 41, creatinine 1.53, GFR 43 Urinary catheter placed, 400 mL UOP Medication ministration: Vancomycin IVPB Rocephin IVPB Normal saline 30 mL/kg Full dose aspirin Allergies/Adverse Reactions: Allergy/AdvReac Type Severity Reaction Status Date / Time codeine Allergy Rash Verified 03/27/20 21:29 Penicillins Allergy Rash Verified 03/27/20 21:29 Home Medications: Medication Instructions Recorded Confirmed Type Allopurinol 300 mg PO DAILY 12/26/15 03/13/20 History Simvastatin 40 mg PO HS 12/26/15 03/13/20 History Aspirin [Aspir-Low] 81 mg PO DAILY 05/19/19 03/13/20 History Acetaminophen [Tylenol Extra 500 mg PO BID 03/13/20 03/13/20 History Strength] Cholecalciferol (Vitamin D3) 2,000 unit PO DAILY 03/13/20 03/13/20 History [Vitamin D3] FLUoxetine HCl [Prozac] 10 mg PO DAILY 03/13/20 03/13/20 History Meclizine HCl [Dramamine Less 25 mg PO DAILY 03/13/20 03/13/20 History Drowsy] Metoprolol Succinate 25 mg PO DAILY 03/13/20 03/13/20 History Oxybutynin Chloride [Oxybutynin 15 mg PO DAILY 03/13/20 03/13/20 History Chloride ER] diphenhydrAMINE [Benadryl] 25 mg PO DAILY 03/13/20 03/13/20 History prednisoLONE Acetate [Pred Mild 1 drop R EYE DAILY 03/13/20 03/13/20 History 0.12% Ophth Suspension] Acetaminophen [Tylenol Regular 325 mg PO Q6HR tab 03/21/20 Rx Strength] QUEtiapine Fumarate [SEROquel] 25 mg PO HS tab 03/21/20 Rx Past History: PMHx: CAD/pacemaker, BPH, gout, depression/anxiety, HLD, urinary retention PSHx: CABG (2004), squamous cell carcinoma, spinal stenosis, hernia repair, TURP, detached retina repair, sinus surgery, shoulder repair, corneal transplant FHx: Noncontributory to this case Social: Currently resides at inpatient rehab. Nonweightbearing exercises status post fall with subsequent pelvic fracture. Former smoker quit greater than 10 years ago. No illicit drug use or heavy alcohol intake. Hospitalist HPI ROS All other systems reviewed; all pertinent +/- noted in HPI/Subj Hospitalist Exam Vitals: Vital Signs (12 hours) Temp Pulse Resp BP Pulse Ox 03/27/20 20:55 100.3 F H 104 H 18 164/83 H 100 Weight Weight 154 lb 8 oz General Appearance: NAD, awake alert. negative: ill appearing Eye: anicteric sclera ENT: normocephalic atraumatic, moist mucosa Neck: supple, no lymphadenopathy Heart: RRR, no murmur, no gallops, no rubs, normal peripheral pulses Respiratory: CTAB, no wheezes, no rales, no ronchi, no tachypnea Gastrointestinal: soft, non-tender, non-distended, normal bowel sounds, no guarding, no rigidity Extremities: no cyanosis, no edema Skin: negative: no lesions (Multiple scabs to scalp, left knee and right lateral foot) Neurological: no focal deficits Psychiatric: normal behavior, A&O x 3 Hospitalist Results Result Diagrams: 03/27/20 15:07 03/27/20 15: Lab results: Laboratory Last Values WBC 21.8 thou/uL (4.8-10.8) H 03/27/20 15: RBC 3.50 mill/uL (4.70-6.10) L 03/27/20 15: Hgb 12.0 g/dL (14.0-18.0) L 03/27/20 15: Hct 35.5 % (42.0-52.0) L 03/27/20 15: MCV 101.0 fL (78.0-98.0) H 03/27/20 15: MCH 34.2 pg (27.0-31.0) H 03/27/20 15: MCHC 33.7 g/dL (32.0-36.0) 03/27/20 15: RDW 13.2 % (11.5-14.5) 03/27/20 15: Plt Count 366 thou/uL (130-400) 03/27/20 15: MPV 7.6 fL (7.4-10.4) 03/27/20 15:07 Neutrophils % (Manual) 90 % (42-75) H 03/27/20 15: Band Neuts % (Manual) 1 % (5-11) L 03/27/20 15:07 Lymphocytes % (Manual) 4 % (21-51) L 03/27/20 15:07 Monocytes % (Manual) 5 % (0-10) 03/27/20 15: Lymphocytes # Not Reportable 03/27/20 15: Plt Morphology Comment Appears Adequate 03/27/20 15: Polychromasia SLIGHT = 2-3 cells (100X) (0-2/hpf) 03/27/20 15: Macrocytosis SLIGHT = 6-15 cells (100X) (0-5/hpf) 03/27/20 15:07 Sodium 134 mmol/L (136-145) L 03/27/20 15:07 Potassium 4.4 mmol/L (3.5-5.1) 03/27/20 15:07 Chloride 96 mmol/L (98-107) L 03/27/20 15:07 Carbon Dioxide 26 mmol/L (23-31) 03/27/20 15:07 Anion Gap 16 mmol/L (10-20) 03/27/20 15:07 BUN 41 mg/dL (8.4-25.7) H 03/27/20 15:07 Creatinine 1.53 mg/dL (0.7-1.3) H 03/27/20 15:07 Estimated GFR (MDRD) 43 03/27/20 15:07 Glucose 125 mg/dL (83-110) H 03/27/20 15:07 Lactic Acid 1.7 mmol/L (0.5-2.2) 03/27/20 16:14 Calcium 8.2 mg/dL (7.8-10.44) 03/27/20 15:07 Total Bilirubin 1.4 mg/dL (0.2-1.2) H 03/27/20 15:07 AST 30 U/L (5-34) 03/27/20 15:07 ALT 35 U/L (8-55) 03/27/20 15:07 Alkaline Phosphatase 182 U/L (40-110) H 03/27/20 15:07 Creatine Kinase 85 U/L (30-200) 03/27/20 15:07 CK-MB (CK-2) 4.0 ng/mL (0-6.6) 03/27/20 15:07 Troponin I 0.032 ng/mL (< 0.028) H 03/27/20 22:30 Serum Total Protein 6.1 g/dL (5.8-8.1) 03/27/20 15:07 Albumin 3.3 g/dL (3.4-4.8) L 03/27/20 15:07 Globulin 2.8 g/dL (2.4-3.5) 03/27/20 15:07 Albumin/Globulin Ratio 1.2 g/dL (1.2-2.2) 03/27/20 15:07 Urine Color Yellow (Yellow) 03/27/20 18:20 Urine Clarity Clear (Clear) 03/27/20 18:20 Urine pH 5.5 (5.0-9.0) 03/27/20 18:20 Ur Specific Thor[place] 1.022 (1.002-1.036) 03/27/20 18:20 Urine Protein 20 mg/dL (Neg-Trace) 03/27/20 18:20 Urine Glucose (UA) Normal mg/dL (Negative) 03/27/20 18:20 Urine Ketones Negative mg/dL (Negative) 03/27/20 18:20 Urine Blood 1+ (Negative) A 03/27/20 18:20 Urine Nitrite Negative (Negative) 03/27/20 18:20 Urine Bilirubin Negative (Negative) 03/27/20 18:20 Urine Urobilinogen 2.0 mg/dL (Less than 2) A 03/27/20 18:20 Ur Leukocyte Esterase Negative Surya/uL (Negative) 03/27/20 18:20 Urine RBC 21-50 HPF (0-3) A 03/27/20 18:20 Urine WBC 7-10 HPF (0-3) A 03/27/20 18:20 Ur Squamous Epith Cells 0-3 HPF (0-3) 03/27/20 18:20 Urine Bacteria None Seen HPF (None Seen) 03/27/20 18:20 Hyaline Casts 11-20 LPF (0-3) A 03/27/20 18:20 Chest x-ray Status: report reviewed by me Additional Comments: No acute cardiopulmonary process EKG Status: report reviewed by me Additional Comments: V paced Hospitalist H&P A/P (1) UTI (urinary tract infection) Status: Acute (2) KB (acute kidney injury) Code(s): N17.9 - ACUTE KIDNEY FAILURE, UNSPECIFIED Status: Acute (3) Urinary retention Code(s): R33.9 - RETENTION OF URINE, UNSPECIFIED Status: Acute (4) Elevated troponin Code(s): R77.8 - OTHER SPECIFIED ABNORMALITIES OF PLASMA PROTEINS Status: Acute (5) CAD (coronary artery disease) Code(s): I25.10 - ATHSCL HEART DISEASE OF [place] CORONARY ARTERY W/O ANG PCTRS Status: Chronic (6) Right acetabular fracture Code(s): S32.401A - UNSP FRACTURE OF RIGHT ACETABULUM, INIT FOR CLOS FX Status: Acute (7) BPH (benign prostatic hyperplasia) Code(s): N40.0 - BENIGN PROSTATIC HYPERPLASIA WITHOUT LOWER URINRY TRACT SYMP Status: Chronic (8) Depression Code(s): F32.9 - MAJOR DEPRESSIVE DISORDER, SINGLE EPISODE, UNSPECIFIED Status: Chronic (9) Gout Code(s): M10.9 - GOUT, UNSPECIFIED Status: Chronic (10) HLD (hyperlipidemia) Code(s): E78.5 - HYPERLIPIDEMIA, UNSPECIFIED Status: Chronic Qualifiers: Hyperlipidemia type: other hyperlipidemia Qualified Code(s): E78.49 - Other hyperlipidemia; E78.4 - Other hyperlipidemia Plan: Patient with history urinary retention and recent fall with subsequent right acetabular fracture presents for urinary retention. Imaging unremarkable. Labs showed leukocytosis. UA suspected UTI. #UTI Suspected. Presented tachycardic. WBCs 21.8, LA 1.7 UA WBC 7-10, no leukocyte esterase or nitrites or bacteria. Blood/urine CX pending. Broad-spectrum antibiotics vancomycin and Rocephin. History urinary retention status post TURP. Multiple, unsuccessful straight cath attempts at rehab center per spouse. Hold oxybutynin. Start Flomax. Consult urology. #KB Likely multifactorial. Presented BUN 41, creatinine 1.53 Baseline Baseline creatinine appears to be 0.7. Received 30 mL/kg IV fluids in the ED. We will recheck levels in a.m. Order renal ultrasound. #Urinary retention Acute on chronic. History of BPH status post TURP. Alcantar catheter removed on Wednesday at rehab s/p fall with subsequent right hip fx. Reported minimal UOP status post catheter removal 48-72 hours. UOP greater 400 mls with urinary catheter placement in ER. Previously followed by Dr. Zbigniew Worley, who retired. PCP recommended Dr. Chappell to patient's spouse. #Elevated troponins Likely demand ischemia. EKG V paced, no ST elevations. Troponins 0.036, 0.020, 0.032 Received full dose aspirin in ED. Continue home dose baby aspirin. Check BNP. #CAD Chronic. CABG (2004), PM/AICD Heart cath 06/[address] Guevara. Multivessel disease. Occluded RCA graft. Medical management. Restart home dose metoprolol, simvastatin and baby aspirin. #Right acetabular fracture Status post fall. with Right inferior pubic rami fracture and right retroperitoneal hematoma. Discharged to [facility] on 03/20/2020. Nonweightbearing, surgical reevaluation planned after rehabilitation completed. Consult PT. #BPH Status post TURP. Start Flomax. #Depression Takes Prozac and recently added Seroquel. Spouse reports Seroquel makes patient agitated/confused. Restart Prozac, hold Seroquel. #Gout Hold home dose allopurinol for now. #HLD Restart home dose simvastatin SCDs for DVT prophylaxis. No GI prophylaxis. CODE STATUS is full code. Discussed the case with attending physician Dr. Alvarez, agrees with plan of care.
[2020-03-28] MEDS ORDERED: Vancomycin 1 GM in Premix Bag 1 BAG IVPB SCH ×2 (04:00→16:00)
[2020-03-28 04:40] LABS: #Lymphocytes 1.2 thou/uL (1.20-3.40); #Monocytes 1.1 thou/uL (0.11-0.59); #Neutrophils 13.9 thou/uL (1.40-6.50); %Basophils 0.1 % (0.0-1.0); %Eosinophils 0.2 % (0.0-10.0); %Lymphocytes 7.6 % (21.0-51.0); %Monocytes 6.7 % (0.0-10.0); %Neutrophils 85.4 % (42.0-75.0); Hemoglobin 10.5 g/dL (14.0-18.0); Mean Corpuscular HGB CONC 33.3 g/dL (32.0-36.0); Mean Corpuscular Hemoglobin 33.5 pg (27.0-31.0); Platelet Count 298 thou/uL (130-400); RBC Distribution Width 13.1 % (11.5-14.5); Red Blood Cell (RBC) Count 3.12 mill/uL (4.70-6.10); White Blood Cell (WBC) Count 16.3 thou/uL (4.8-10.8)
[2020-03-28 04:54] LABS: Anion Gap 13 mmol/L (10-20); BUN (Urea Nitrogen) 33 mg/dL (8.4-25.7); Calc. Creatinine Clearance 69 mL/min (70-130); Calcium 7.9 mg/dL (7.8-10.44); Carbon Dioxide 23 mmol/L (23-31); Chloride 102 mmol/L (98-107); Glucose 93 mg/dL (83-110); Potassium 3.7 mmol/L (3.5-5.1); Sodium 134 mmol/L (136-145)
[2020-03-28 05:15] LABS: SARS-CoV-2 PCR by NAA Not Detected (NotDetected)
--- NOTE | 2020-03-28 07:52 | ULT ---
Exam: Bilateral renal ultrasound HISTORY: Acute kidney insufficiency COMPARISON: None FINDINGS: Right kidney: Normal cortical echotexture. No hydronephrosis. Right kidney measurements: 10.7 x 5.2 x 4.2 cm. Left kidney: Normal cortical echotexture. No hydronephrosis Left kidney measurements 11.9 x 4.4 x 5.6 cm. There is bilateral renal cortical thinning Urinary bladder: Compressed by Alcantar catheter IMPRESSION: No hydronephrosis.
[2020-03-28] MEDS ORDERED: FLU VACC QS2020-21(65YR UP)/PF 240 MCG/0.7 ML SYRINGE IM ONE (09:00)
[2020-03-28] MEDS: Aspirin 81 mg Enteric Coated Tablet PO SCH (09:16)
[2020-03-28] MEDS: FLUoxetine HCl 10 MG CAP PO SCH (09:16)
[2020-03-28] MEDS: Tamsulosin HCl 0.4 MG CAP PO SCH (09:16)
[2020-03-28] MEDS: Triple Antibiotic Oint 1 GM Packet TOP SCH ×3 (09:16→20:27)
[2020-03-28] MEDS: Meclizine HCl 25 MG TAB PO SCH (09:16)
[2020-03-28] MEDS ORDERED: cefTRIAXone\\ROCEPHIN 1 GM in Sodium Chloride 0.9% 100 ML IVPB SCH (16:00)
--- NOTE | 2020-03-28 17:51 | PDOC.HOSPP ---
- Subjective Encounter Date: 03/28/20 Encounter Time: 08:30 Subjective: Seen in follow-up for urinary retention. No chest pain. - Objective Vital Signs & Weight: Vital Signs (12 hours) Temp Pulse Pulse Pulse Resp BP BP 03/28/20 15:40 98.6 F 88 18 03/28/20 12:00 98.1 F 73 18 03/28/20 10:55 91 97 156/71 H 138/63 03/28/20 08:00 98.8 F 89 17 03/28/20 06:06 98.2 F 94 16 BP Pulse Ox Pulse Ox Pulse Ox 03/28/20 15:40 169/81 H 100 03/28/20 12:00 148/70 H 99 03/28/20 10:55 100 100 03/28/20 08:00 144/67 H 100 03/28/20 06:06 126/71 100 Weight Admit Weight 154 lb 8 oz Weight 154 lb 8 oz I&O: 03/27/20 03/28/20 03/29/20 06:59 06:59 06:59 Output Total 1125 Balance -1125 Result Diagrams: 03/28/20 04:17 03/28/20 04:17 Additional Labs: Labs and MAR reviewed by me EKG Reviewed by me: Yes (Telemetry shows normal sinus rhythm) Hospitalist ROS - Review of Systems Respiratory: denies: cough, shortness of breath, SOB with excertion, pleuritic pain, wheezing Cardiovascular: denies: chest pain, palpitations, orthopnea, paroxysmal noc. dyspnea, edema, light headedness Genitourinary: reports: retention - Medication Medications: Active Medications Generic Name Dose Route Start Last Admin Trade Name Freq PRN Reason Stop Dose Admin Aspirin 81 mg 03/28/20 09:00 03/28/20 09:16 Aspirin 81 Mg Enteric Coated Tablet PO 81 mg DAILY BLAKE Administration Fluoxetine HCl 10 mg 03/28/20 09:00 03/28/20 09:16 Fluoxetine Hcl 10 Mg Cap PO 10 mg DAILY BLAKE Administration Ceftriaxone Sodium 1 gm/ 100 mls @ 200 mls/hr 03/28/20 16:00 03/28/20 17:06 Sodium Chloride IVPB 100 mls Q24HR BLAKE Administration Vancomycin HCl 1 gm/ Device 200 mls @ 200 mls/hr 03/28/20 16:00 03/28/20 17:03 IVPB 200 mls 1600 BLAKE Administration Meclizine HCl 25 mg 03/28/20 09:00 03/28/20 09:16 Meclizine Hcl 25 Mg Tab PO 25 mg DAILY BLAKE Administration Metoprolol Succinate 25 mg 03/28/20 09:00 03/28/20 09:16 Metoprolol Succinate Xl 25 Mg Tab PO 25 mg DAILY BLAKE Administration Neomycin/Polymyxin/Bacitracin 1 gm 03/28/20 09:00 03/28/20 17:04 Triple Antibiotic Oint 1 Gm Packet TOP 1 gm TID BLAKE Administration Tamsulosin HCl 0.4 mg 03/28/20 09:00 03/28/20 09:16 Tamsulosin Hcl 0.4 Mg Cap PO 0.4 mg DAILY BLAKE Administration Hospitalist Exam Vitals: Vital Signs (12 hours) Temp Pulse Pulse Pulse Resp BP BP 03/28/20 15:40 98.6 F 88 18 03/28/20 12:00 98.1 F 73 18 03/28/20 10:55 91 97 156/71 H 138/63 03/28/20 08:00 98.8 F 89 17 03/28/20 06:06 98.2 F 94 16 BP Pulse Ox Pulse Ox Pulse Ox 03/28/20 15:40 169/81 H 100 03/28/20 12:00 148/70 H 99 03/28/20 10:55 100 100 03/28/20 08:00 144/67 H 100 03/28/20 06:06 126/71 100 Weight Admit Weight 154 lb 8 oz Weight 154 lb 8 oz General Appearance: awake alert Eye: anicteric sclera ENT: moist mucosa Neck: supple Heart: RRR Respiratory: CTAB Gastrointestinal: soft, non-tender Skin: no rashes Psychiatric: normal affect Hosp A/P - Plan (1) Urinary retention Code(s): R33.9 - RETENTION OF URINE, UNSPECIFIED Status: Acute (2) Elevated troponin Code(s): R77.8 - OTHER SPECIFIED ABNORMALITIES OF PLASMA PROTEINS Status: Acute (3) CAD (coronary artery disease) Code(s): I25.10 - ATHSCL HEART DISEASE OF [place] CORONARY ARTERY W/O ANG PCTRS Status: Chronic (4) BPH (benign prostatic hyperplasia) Code(s): N40.0 - BENIGN PROSTATIC HYPERPLASIA WITHOUT LOWER URINRY TRACT SYMP Status: Chronic (5) Depression Code(s): F32.9 - MAJOR DEPRESSIVE DISORDER, SINGLE EPISODE, UNSPECIFIED Status: Chronic (6) Gout Code(s): M10.9 - GOUT, UNSPECIFIED Status: Chronic (7) HLD (hyperlipidemia) Code(s): E78.5 - HYPERLIPIDEMIA, UNSPECIFIED Status: Chronic Qualifiers: Hyperlipidemia type: other hyperlipidemia Qualified Code(s): E78.49 - Other hyperlipidemia; E78.4 - Other hyperlipidemia Plan: (8) KB (acute kidney injury) Code(s): N17.9 - ACUTE KIDNEY FAILURE, UNSPECIFIED Status: Resolved Patient with history urinary retention and recent fall with subsequent right acetabular fracture presents for urinary retention. Imaging unremarkable. Labs showed leukocytosis. UA suspected UTI. #Urinary retention Alcantar catheter has been replaced. Await urology input. #Elevated troponins Likely demand ischemia. #CAD Stable #BPH Status post TURP. Start Flomax. #Depression #Gout Hold home dose allopurinol for now. #HLD Continue simvastatin
--- NOTE | 2020-03-28 18:03 | CON ---
DATE OF CONSULTATION: 03/28/2020 REASON FOR CONSULT: Urinary retention. CHIEF COMPLAINT: Unable to urinate. HISTORY OF PRESENT ILLNESS: This is an 84-year-old male, who was recently hospitalized for fall with right hip fracture. He was discharged on March 21 and was inpatient at snf at [facility]. He had a catheter placed during his initial hospitalization. This was removed on Wednesday, March 25. He had very little urine output over the next 3 days and attempts to replace his catheter were made late yesterday at his nursing facility. They were unsuccessful and so he was transferred to the emergency room here. Alcantar catheter was placed without issue in the emergency room. He tells me that the catheter is not bothersome. He remains slightly disoriented, although it sounds as though this is much improved from his previous stay, at which point he had significant delirium. He does have a history of enlarged prostate with lower urinary tract symptoms, status post transurethral resection 15 or [address] Zbigniew Worley. He is not currently on any prostate medications, although he is taking oxybutynin. It is not clear why he is on this medication. He currently denies flank pain, nausea, fevers, suprapubic pain. PAST MEDICAL HISTORY: Cardiac disease, BPH, gout, depression, hyperlipidemia. PAST SURGICAL HISTORY: Transurethral resection of prostate 15 or 20 years ago, hernia repair, retina surgery, sinus surgery, shoulder surgery, CABG in 2004. FAMILY HISTORY: Reviewed, noncontributory. SOCIAL HISTORY: . Former smoker, no substance abuse. HOME MEDICATIONS: Reviewed. Pertinent for oxybutynin. REVIEW OF SYSTEMS: Twelve point review of systems reviewed, negative except as in my HPI. PHYSICAL EXAMINATION: VITAL SIGNS: Afebrile. Vital signs stable. GENERAL: No acute distress. Conversant. HEENT: Head, normocephalic and atraumatic. Extraocular movements intact. Sclerae anicteric. NECK: Supple. Trachea midline. Unlabored breathing. CHEST: Symmetric chest expansion. HEART: Regular rate and rhythm. ABDOMEN: Soft, nontender, nondistended. No flank tenderness. No suprapubic tenderness. Alcantar catheter in good position draining clear, albeit somewhat dark urine. No blood around the catheter. EXTREMITIES: No peripheral edema. SKIN: Warm and dry. NEUROLOGIC: Alert and oriented x3. PSYCHIATRIC: Normal mood and affect. LABORATORY DATA: Reviewed. White count 21 on admission, 16 this morning. Creatinine 0.78. Urinalysis, negative leukocytes, negative nitrite. Urine culture, no growth. IMAGING STUDIES: Renal ultrasound has been reviewed. No hydronephrosis. Alcantar catheter in good position. ASSESSMENT AND PLAN: Urinary retention, lower urinary tract symptoms due to enlarged prostate, deconditioning. I have advised that we keep the catheter indwelling. He will be nonweightbearing over the next 6 to 8 weeks. I think it is quiroz for us to leave the catheter to be exchanged at [place] in 3 or 4 weeks and then I will see him at the 6-week radha in my office to perform cystoscopy and evaluate if he is likely to do well with medical therapy or if surgical intervention may be indicated in future. He should remain off oxybutynin and would benefit from starting Flomax and finasteride. I have already coordinated with my office to arrange this followup and send orders to [place]. Job ID: [id number]
[2020-03-28] MEDS ORDERED: Simvastatin 40 MG TAB PO SCH (21:00)
[2020-03-29] MEDS: Aspirin 81 mg Enteric Coated Tablet PO SCH (08:25)
[2020-03-29] MEDS: FLUoxetine HCl 10 MG CAP PO SCH (08:26)
[2020-03-29] MEDS: Tamsulosin HCl 0.4 MG CAP PO SCH (08:26)
[2020-03-29] MEDS: Triple Antibiotic Oint 1 GM Packet TOP SCH (08:26)
[2020-03-29] MEDS: Meclizine HCl 25 MG TAB PO SCH (08:27)
[2020-03-29] MEDS ORDERED: Finasteride 5 MG TAB PO SCH (09:00)
--- NOTE | 2020-03-29 14:17 | PDOC.DS.DS ---
Provider Date of Admission: 03/27/20 19:34 Date of Discharge: 03/29/20 Admitting Provider: Lawson Alvarez MD Consultations: Urology (Dr. Chappell) Primary Care Physician: Radha Benton MD Course Hospital Course: Discharge diagnosis: 1. Urinary retention 2. Hyponatremia 3. Covid 19 test negative 4. Acute kidney injury Hospital course: Patient is a pleasant 82-year-old gentleman who was admitted to the hospital on March 27, 2020 for urinary retention. He also received intravenous antibiotics for suspected urinary tract infection. He was seen by urology molly, who recommended to keep indwelling Webb catheter and to be exchanged at [place] in 3 or 4 weeks and then urologist will see him at the 6-week radha in his office to perform cystoscopy. Patient should remain off of oxybutynin and urology started Flomax and finasteride. He has been accepted to [place] for further management. Discharge destination: [place] Total amount of time spent coordinating this discharge: 32 minutes Resuscitation Status: 03/28/20 01:24 Resuscitation Status Routine Co-Sign Provider: Resuscitation Status: FULL: Full Resuscitation Discussed with: patient and spouse Lab Results: 03/28/20 04:17 03/28/20 04:17 Abnormal Lab Results - Last 48 hrs 03/27/20 15:07: Troponin I 0.036 H 03/27/20 15:07: WBC 21.8 H, RBC 3.50 L, Hgb 12.0 L, Hct 35.5 L, MCV 101.0 H, MCH 34.2 H, Neutrophils % (Manual) 90 H, Band Neuts % (Manual) 1 L, Lymphocytes % (Manual) 4 L 03/27/20 15:07: Sodium 134 L, Chloride 96 L, BUN 41 H, Creatinine 1.53 H, Total Bilirubin 1.4 H, Alkaline Phosphatase 182 H, Albumin 3.3 L 03/27/20 18:20: Urine Blood 1+ A, Urine Urobilinogen 2.0 A, Urine RBC 21-50 A, Urine WBC 7-10 A, Hyaline Casts 11-20 A 03/27/20 22:30: Troponin I 0.032 H 03/28/20 04:17: Sodium 134 L, BUN 33 H 03/28/20 04:17: WBC 16.3 H, RBC 3.12 L, Hgb 10.5 L, Hct 31.4 L, MCV 100.0 H, MCH 33.5 H, Neutrophils % 85.4 H, Lymphocytes % 7.6 L, Neutrophils # 13.9 H, Monocytes # 1.1 H 03/28/20 04:17: B-Natriuretic Peptide 261.1 H Microbiology - Entire Visit 03/27/20 18:20 Urine webb catheter Urine Culture - Final NO GROWTH AT 36 HOURS 03/27/20 16:14 Venous blood - Right Arm Blood Culture - Preliminary NO GROWTH AT 48 HOURS 03/27/20 16:15 Venous blood - Left Arm Blood Culture - Preliminary NO GROWTH AT 48 HOURS Vitals: Vital Signs (12 hours) Temp Pulse Pulse Pulse Resp BP BP 03/29/20 12:00 98.6 F 74 18 03/29/20 09:35 87 72 143/65 H 140/66 03/29/20 07:50 98.5 F 75 17 03/29/20 03:36 98.6 F 82 16 BP Pulse Ox 03/29/20 12:00 138/66 100 03/29/20 09:35 03/29/20 07:50 157/76 H 100 03/29/20 03:36 137/65 98 Weight Admit Weight 154 lb 8 oz Weight 154 lb 8 oz Physical Exam: The patient was seen and examined on the day of discharge. Patient denies chest pain or shortness of breath. Vital signs are stable. S1 and S2 are heard. Lungs are clear to auscultation bilaterally. Plan Home Medications: Medication Instructions Recorded Confirmed Type Allopurinol 300 mg PO DAILY 12/26/15 03/28/20 History Simvastatin 40 mg PO HS 12/26/15 03/28/20 History Aspirin [Aspir-Low] 81 mg PO DAILY 05/19/19 03/28/20 History Acetaminophen [Tylenol Extra 500 mg PO BID 03/13/20 03/28/20 History Strength] Cholecalciferol (Vitamin D3) 2,000 unit PO DAILY 03/13/20 03/28/20 History [Vitamin D3] FLUoxetine HCl [Prozac] 10 mg PO DAILY 03/13/20 03/28/20 History Meclizine HCl [Dramamine Less 25 mg PO DAILY 03/13/20 03/28/20 History Drowsy] Metoprolol Succinate 25 mg PO DAILY 03/13/20 03/28/20 History Oxybutynin Chloride [Oxybutynin 15 mg PO DAILY 03/13/20 03/28/20 History Chloride ER] diphenhydrAMINE [Benadryl] 25 mg PO PRN PRN 03/13/20 03/28/20 History prednisoLONE Acetate [Pred Mild 1 drop R EYE DAILY 03/13/20 03/28/20 History 0.12% Ophth Suspension] Acetaminophen [Tylenol Regular 325 mg PO Q6HR PRN 03/28/20 03/28/20 History Strength] QUEtiapine Fumarate [SEROquel] 12.5 mg PO HS 03/28/20 03/28/20 History Allergies: codeine Allergy (Verified 03/27/20 21:29) Rash Penicillins Allergy (Verified 03/27/20 21:29) Rash Referrals: [facility] [Outside] (prison placement.) Lilliam Boykin MD [Active] - (Accepting pcp at the [facility] facility for snf placement.) Radha Benton MD [Primary Care Provider] - Disposition: HOME Quality CORE MEASURES:: N/A
[2020-03-29 15:21] LABS: Vancomycin, Trough 4.3 ug/mL
[2020-03-29 15:36] VITALS: BP 144/69; TEMP 98.1
--- NOTE | 2020-03-30 05:29 | PQF ---
CLINICAL DOCUMENTATION CLARIFICATION FORM: Dear : Kan Gallego Date / Time: 03/30/2020527 Please exercise your independent, professional judgment in responding to the clarification form. Clinical indicators are provided on the bottom of this form for your review Please check appropriate box(es): [ ] UTI due to Indwelling catheter [ ] UTI only [ ] No presence of UTI [ ] Other diagnosis [ ] Unable to determine Physician Signature: Date/Time: For continuity of documentation, please document condition throughout progress notes and discharge summary. Thank You. To be completed by CDI/Coding staff for physician review: Present Clinical Indicators - Signs / Symptoms / Labs Results and Location in Medical Record [x] WBC 21.8, Plt count 366, Neutrophils 90, Band 1 Laboratory 03/27 [x] Ph 5.5, Blood 1+, RBC 21-50, WBC 7-10, Bacteria-None Urinalysis 03/27 [x] Urine Culture: No growth Microbiology 03/27 [x] BP 125/65, Pulse 101, Resp 16, Temp 98.4 Vital signs 03/27 [x] Complaining of urinary retention H&P p1 03/27[employer] [x] Had chronic urinary frequency and urgency 2/2 BPH H&P p1 03/27[employer] [x] Pt had webb catheter, which was removed on Wednesday H&P p1 03/27[employer] [x] UA suspected UTI H&P p6 03/27[employer] Present Risk Factors Results and Location in Medical Record [x] 84 year-old Male H&P p1 03/27[employer] [x] BPH H&P p1 03/27[employer] [x] KB H&P p5 03/27[employer] Present Treatments Results and Location in Medical Record [x] IV Vancomycin 1 gm APR 16 [x] Flomax 0.4 mg oral APR 16 [x] IVF NS 1L APR 16 [x] IV Ceftriaxone 2 gm APR 16 [x] Catheter replaced H&P p5 03/27[employer] CD[employer] Signature: Katelin Dickbety Phone #: ext [phone] Date/Time: 03/30/20527 This is a permanent part of the Medical Record [facility]
== END 2020-03-29 15:30 | DRG 725 ==
LOC: ERS 14:40 → 2NO 19:34
PROVIDERS: ADMIT Internal Medicine; ATTEND Internal Medicine
PROC: 0T9B70Z Drainage of Bladder with Drainage Device, Via Natural or Artificial Opening (ICD-10-PCS; principal; 2020-03-27)
DX: N40.1 Benign prostatic hyperplasia with lower urinary tract symptoms (principal); S32.401A Unspecified fracture of right acetabulum, initial encounter for closed fracture; S32.591A Other specified fracture of right pubis, initial encounter for closed fracture; E87.1 Hypo-osmolality and hyponatremia; N17.9 Acute kidney failure, unspecified; S36.892A Contusion of other intra-abdominal organs, initial encounter; Z95.1 Presence of aortocoronary bypass graft; Z20.822 Contact with and (suspected) exposure to COVID-19; I25.10 Atherosclerotic heart disease of native coronary artery without angina pectoris; R33.8 Other retention of urine; R35.0 Frequency of micturition; F32.9 Major depressive disorder, single episode, unspecified; F41.9 Anxiety disorder, unspecified; E78.5 Hyperlipidemia, unspecified; M10.9 Gout, unspecified; R77.8 Other specified abnormalities of plasma proteins; W18.30XA Fall on same level, unspecified, initial encounter; Z28.21 Immunization not carried out because of patient refusal; Z88.5 Allergy status to narcotic agent; Z88.0 Allergy status to penicillin; Z87.891 Personal history of nicotine dependence; Z95.810 Presence of automatic (implantable) cardiac defibrillator; Z79.899 Other long term (current) drug therapy
CPT/HCPCS: 36415; 51702; 71045; 76770; 80048; 80202; 81003; 81015; 82550; 82553; 83605; 83880; 84484; 85025; 87040; 87086; 87635; 93005; 94760; 96365; 96367; C9803; J0696; J3370; J3490; U0003; U0005